=== PATIENT | female | born 1960 | race Caucasian/White ===

== ENCOUNTER → 2019-11-20 00:01 | Outpatient (BNVA) | payer MEDICAID, SELFPAY | PROVIDERS: Family Provider Nurse Practitioner Family; PCP Nurse Practitioner Family; Visit Provider Nurse Practitioner Family | DX: I10 Essential (primary) hypertension (principal); E55.9 Vitamin D deficiency, unspecified; R53.83 Other fatigue; Z79.899 Other long term (current) drug therapy; E78.2 Mixed hyperlipidemia; K21.9 Gastro-esophageal reflux disease without esophagitis; J45.40 Moderate persistent asthma, uncomplicated; J44.9 Chronic obstructive pulmonary disease, unspecified; J30.89 Other allergic rhinitis | CPT/HCPCS: 80053; 80061; 81001; 82306; 82607; 82746; 83036; 83735; 84443; 85025 ==

== ENCOUNTER → 2020-04-21 12:03 | Outpatient (BNVA) | payer MEDICAID, SELFPAY | PROVIDERS: Family Provider Nurse Practitioner Family; PCP Nurse Practitioner Family; Visit Provider Nurse Practitioner Family | DX: I10 Essential (primary) hypertension (principal); R30.0 Dysuria; M54.9 Dorsalgia, unspecified | CPT/HCPCS: 80053; 81001 ==

== ENCOUNTER 2020-09-11 16:11 | Emergency (ER) | payer MEDICAID, SELFPAY ==
[2020-09-11 16:24] VITALS: BP 144/98; PULSE 109; RESP 18; TEMP 36.6; O2SAT 94; BMI 64.2
--- NOTE | 2020-09-11 17:03 | XR_ITS ---
WS: [id number] Exam: XR chest 1V portable [id number] Date/Time of Exam: 09/11/2020 5:10 PM Reason For Exam: pain No priors. Plaque atelectasis in the lingula. No obvious consolidating infiltrates. Cardiomediastinal structures are unremarkable for technique. XR/XR chest 1V portable [id number] IMPRESSION: 1. Plaque atelectasis in the lingula. 2. No acute cardiopulmonary finding.
--- NOTE | 2020-09-11 17:19 | W.ED.GENADLT ---
HPI - General Adult General: Chief complaint: Headache Stated complaint: left knee and arm pain, pain in face Time Seen by Provider: 09/11/20 17:03 History of Present Illness: HPI narrative: Patient arrives here by POV with complaint about face pain on the right side neck pain and some pain left shoulder area was seen at [facility] diagnosed with nerve inflammation right side of her neck. MD complaint: Multiple complaints Onset (ago): day(s) Location: head, face, neck and upper extremity Radiation: non-radiation Severity: mild Severity scale (1-10): 2 Quality: aching Pain Consistency: intermittent Relieving factors: none Exacerbating factors: none Associated symptoms: Reports no associated symptoms; Deny chest pain, dyspnea, headache(s), nausea, rash or vomiting Treatments prior to arrival: none Review of Systems Narrative: Pain the right side of the face neck no swelling or inflammation she states is been gone for a few days does not take any [id number] medicines for relief Const: Denies: fever(s), chills or body aches Eyes: Denies: change in vision or blurry vision ENMT: Denies: throat pain or nasal congestion Card: Denies: chest pain or dyspnea on exertion Resp: Denies: dyspnea, productive cough or non-productive cough GI: Denies: abdominal pain, nausea or vomiting Musc: Reports: joint pain (Left shoulder); Denies: extremity pain Skin/Breast: Denies: rash Neuro: Denies: headache(s) Psych: Denies: anxiety or depression Bridger/Lymph: Denies: easy bruising PFSH ED PFSH: Medical History (Updated 09/11/20 @ 17:39 by SALOMON Peters) Abscess of right breast Back Pain Dysuria Environmental and seasonal allergies Patient has chronic seasonal and environmental allergies that are controlled with antihistamines GERD (gastroesophageal reflux disease) Patient has been controlled with Zantac in the past. Stopped Zantac due to recall by FDA Hypertension Patient's hypertension is controlled with antihpertensives. She does home BP monitoring. Moderate persistent asthma Patient has chronic asthma that is controlled with inhaler. Normal colonoscopy Colonoscopy 02/2019, normal repeat in 10 ears Vitamin D deficiency Patient needs updated Vitamin D level. She cannot tolerate Vitamin D supplement at this time. Surgical History S/P cholecystectomy S/P hernia repair S/P shoulder surgery Family History Brother Stroke Sister Stroke Father Stroke Other CAD (coronary artery disease) Diabetes Social History Smoking and tobacco status: former smoker Alcohol intake: never Household members: significant other Physical Exam Narrative: EXAM NARRATIVE: Very obese Const: COMMON NORMALS: no acute distress, average body habitus and patient oriented x3 HENMT: COMMON NORMALS: normocephalic HEAD & SCALP: normal to inspection and normocephalic FACE & SINUS: normal facial exam Eye: COMMON NORMALS: conjunctivae normal GENERAL EYE: appearance normal, both eyes and all related structures CONJUNCTIVA: Yes conjunctivae normal Neck/C-Spine: COMMON NORMALS: no JVD Chest: COMMONS NORMALS: normal inspection of the chest Resp: COMMON NORMALS: normal respiratory effort and clear to auscultation bilaterally AUSCULTATION: clear to auscultation bilaterally Cardio: COMMON NORMALS: no JVD, regular rate and regular rhythm RATE: regular rate RHYTHM: regular rhythm GI: COMMON NORMALS: Normal to inspection, nondistended, normoactive bowel sounds present Extremity: COMMON NORMALS: normal to inspection and full ROM NARRATIVE EXTREMITY EXAM: Some pain left shoulder with range of motion noted with palpation some pain in left central chest with palpation Neuro: COMMON NORMALS: patient oriented x3 and CN's II-XII intact bilaterally Skin: NARRATIVE SKIN EXAM: Patient is tender palpation right side neck is not there is no swelling redness erythema noted Course Vital Signs: Vital signs: Vital Signs Temperature 97.9 F 09/11/20 16:24 Pulse Rate 109 H 09/11/20 16:24 Respiratory Rate 18 09/11/20 16:24 Blood Pressure 144/98 09/11/20 16:24 Pulse Oximetry 94 09/11/20 16:24 Discharge Plan Discharge Patient Disposition: Home Clinical Impression: Chondrocostal joint sprain Qualifiers: Encounter type: initial encounter Qualified Code(s): S23.41XA - Sprain of ribs, initial encounter Condition: Stable Prescriptions: New Protonix 20 mg tablet,delayed release (DR/EC) 20 mg PO QAM 28 Days Qty: 28 RF: 0 Daypro 600 mg tablet 600 mg PO DAILY Qty: 20 RF: 0 No Action omega-3 fatty acids [Fish Oil Concentrate] 1,000 mg capsule 1,000 mg PO BID RF: 0 doxycycline monohydrate 100 mg capsule 100 mg PO BID 10 Days Qty: 20 RF: 0 omeprazole 20 mg capsule,delayed release(DR/EC) 20 mg PO ONCE MDD gerd 30 Days Qty: 30 RF: 2 albuterol sulfate [ProAir HFA] 90 mcg/actuation HFA aerosol inhaler 1 inh INHALATION Q4H PRN (Reason: shortness of breath or wheezing) 30 Days Qty: 8.5 RF: 2 amlodipine 10 mg tablet 10 mg PO ONCE 30 Days Qty: 30 RF: 2 diphenhydramine HCl [Benadryl Allergy] 25 mg tablet 25 mg PO TID PRN (Reason: allergy symptoms) Qty: 120 RF: 2 prednisone 20 mg tablet 10 mg PO DAILY Qty: 30 RF: 0 quailxjs-ekgdvpotj-SM 3.5-10,000-1 mg/mL-unit/mL-% drops,suspension 2 drop EAR-BOTH TID PRN (Reason: itchy ears) Qty: 10 RF: 0 Discharge Orders: Discharge Order (Routine); Ordered 09/11/20 Ordered By: Antonio Echeverria Referrals: REYNOLD Schaefer, CLOCK REPAIRER [Primary Care Provider] - Discharge Diet: Usual diet Discharge Activity: Increase activity as tolerated Patient Instructions: Costochondritis (ED) Activity Restrictions/Additional Instructions: Follow-up with medical provider as directed. Take medications as prescribed. Return to the ER or your medical provider if condition worsens. Please read and understand discharge instructions. If any questions ask please. Take your Protonix with your Daypro please Discharge Date/Time: 09/11/20 17:44 Coding Level of Care Code ED Apartment Maintenance Technician for Chg Fwd Exam Comprehensive
[2020-09-11] MEDS: diclofenac 75 mg DR Tablet PO (17:37)
[2020-09-11] MEDS: pantoprazole DR 40 mg Tablet PO (17:37)
== END 2020-09-11 17:44 | disposition home or self-care (01) ==
PROVIDERS: Emergency Provider Nurse Practitioner Family; PCP Nurse Practitioner Family
DX: S23.41XA Sprain of ribs, initial encounter (principal); X58.XXXA Exposure to other specified factors, initial encounter; I10 Essential (primary) hypertension; Z87.891 Personal history of nicotine dependence
CPT/HCPCS: 12345; 71045; 99281; 99283

== ENCOUNTER → 2021-03-03 15:11 | Outpatient (BNVA) | payer MEDICAID, SELFPAY | PROVIDERS: PCP Nurse Practitioner Family; Visit Provider Internal Medicine Pulmonary Disease | DX: J45.40 Moderate persistent asthma, uncomplicated (principal); J44.9 Chronic obstructive pulmonary disease, unspecified; R60.0 Localized edema; J30.89 Other allergic rhinitis; G47.33 Obstructive sleep apnea (adult) (pediatric) | CPT/HCPCS: 82785; 85025; 86003 ==

== ENCOUNTER 2021-03-31 11:27 | Outpatient (CLI) | payer MEDICAID, SELFPAY ==
--- NOTE | 2021-03-31 12:00 | USCV_ITS ---
Isaak Caren Age: 60 Gender: F : 1960 Exam Date: 03/31/2021 11:39 Ordering Phys: Henry Solomon MD Technologist: Deirdre Read [place] [facility] [place]ication: ENLARGED HEART WITH LOCALIZED EDEMA BP: / HR: 95 Rhythm: Sinus Technical Quality: Very technically difficult study MEASUREMENTS (Male / Female) Normal Values 2D ECHO LV Diastolic Diameter PLAX 4.2 cm 4.2 - 5.9 / 3.9 - 5.3 cm LV Systolic Diameter PLAX 2.0 cm LV Chamber Size 3.7 cm IVS Diastolic Thickness 1.3 cm 0.6 - 1.0 / 0.6 - 0.9 cm IVS Systolic Thickness 1.9 cm LVPW Diastolic Thickness 1.5 cm 0.6 - 1.0 / 0.6 - 0.9 cm LVPW Systolic Thickness 2.0 cm RV Chamber Size 3.9 cm LVOT Diameter 2.0 cm LV Ejection Fraction 2D Teich 83.1 % LV Ejection Fraction MOD 2C 44.7 % LV Ejection Fraction 2C AL 44.6 % LA Diameter 4.5 cm LA Width 3.3 cm LA Height 3.6 cm RA Width 3.1 cm RA Height 3.3 cm Aorta at Sinotubular Diameter 2.7 cm M-MODE LV Diastolic Diameter MM 4.3 cm 4.2 - 5.9 / 3.9 - 5.3 cm LV Systolic Diameter MM 2.9 cm LV Ejection Fraction MM Teich 61.4 % IVS Diastolic Thickness MM 1.2 cm 0.6 - 1.0 / 0.6 - 0.9 cm IVS Systolic Thickness MM 1.6 cm LVPW Diastolic Thickness MM 1.5 cm 0.6 - 1.0 / 0.6 - 0.9 cm LVPW Systolic Thickness MM 1.6 cm RV Diastolic Diameter MM 3.2 cm Aortic Annulus Diameter 2.4 cm LA Ao Ratio MM 1.9 MV E Point Septal Separation 0.4 cm DOPPLER AV Peak Velocity 227.0 cm/s LVOT Peak Velocity 107.0 cm/s AV Area Cont Eq vti 1.9 cm squared AV Area Cont Eq pk 1.6 cm squared MV Area PHT 8.1 cm squared Mitral E to A Ratio 1.4 MV E' Velocity 52.5 cm/s Mitral E to MV E' Ratio 10.4 Mitral E to LV E' Lateral Ratio 12.3 Mitral E to LV E' Septal Ratio 9.2 TR Peak Velocity 155.6 cm/s TR Peak Gradient 9.7 mmHg TR Mean Velocity 125.2 cm/s TR Mean Gradient 7.3 mmHg TR Velocity Time Integral 40.5 cm TV Peak E Velocity 60.0 cm/s Right Atrial Pressure 3.0 mmHg Pulmonary Artery Systolic Pressu 12.7 mmHg PV Peak Velocity 79.0 cm/s RV Acceleration Time 0.1 s RV Ejection Time 0.3 s RV AcT/ET 0.5 FINDINGS Left Ventricle Normal left ventricular size and systolic function, EF 55 %. Segmental wall motion analysis difficult. No gross wall motion normalities noted Right Ventricle Normal right ventricular size and systolic function. Right Atrium Possibly of normal size Left Atrium Mildly increased left atrial size. Mitral Valve No gross abnormalities noted Aortic Valve Thickened aortic valve. Tricuspid Valve No gross abnormalities noted Pulmonic Valve Pulmonic valve not well visualized. Pericardium Normal pericardium without effusion. Aorta Normal ascending aorta dimension. CONCLUSIONS Normal left ventricular size and systolic function, EF 55 %. Segmental wall motion analysis difficult. No gross wall motion normalities noted. Mildly increased left atrial size. Thickened aortic valve There is no pericardial effusion. Technically difficult study because of the poor ultrasonic window. Dr Dena Mariscal MD [facility] (Electronically Signed) Final Date: 01 Apr 2021 01:03 S
== END 2021-03-31 11:28 | disposition home or self-care (01) ==
PROVIDERS: PCP Nurse Practitioner Family; Visit Provider Internal Medicine Pulmonary Disease
DX: R60.0 Localized edema (principal); I51.7 Cardiomegaly; I35.8 Other nonrheumatic aortic valve disorders
CPT/HCPCS: 93306

== ENCOUNTER → 2021-04-07 14:02 | Outpatient (BNVA) | payer MEDICAID, SELFPAY | PROVIDERS: PCP Nurse Practitioner Family; Visit Provider Nurse Practitioner Family | DX: N39.0 Urinary tract infection, site not specified (principal) | CPT/HCPCS: 81000 ==

== ENCOUNTER 2021-04-10 20:32 | Emergency (ER) | payer MEDICAID, SELFPAY ==
[2021-04-10 20:36] VITALS: BP 184/90; PULSE 103; RESP 18; TEMP 36.4; O2SAT 93; BMI 61.2
--- NOTE | 2021-04-10 20:57 | ED_ITS ---
HPI - Female Genitourinary General: Chief complaint: Urogenital-Female Stated complaint: WANTS KIDNEYS AND BLADDER CHECKED Time Seen by Provider: 04/10/21 20:45 History of Present Illness: HPI Narrative: Patient said she is having frequent urination. Had a UA done ER stay was negative. Was told by her provider that she has a fallen bladder. She wants her urine rechecked. Think she has urinary tract infection. Says she has had UTIs since age 4. MD elicited complaint: UTI Severity: mild Urinary symptoms: Difficulty Urinating, Frequency and Urgency Associated symptoms: Reports no associated symptoms; Deny abdominal pain, headache(s) or nausea Review of Systems Const: Denies: fever(s), chills or body aches Eyes: Denies: change in vision or blurry vision ENMT: Denies: throat pain or nasal congestion Card: Denies: chest pain or dyspnea on exertion Resp: Denies: dyspnea, productive cough or non-productive cough GI: Denies: abdominal pain, nausea or vomiting : Reports: urinary frequency and oliguria Musc: Denies: extremity pain Skin/Breast: Denies: rash Neuro: Denies: headache(s) Psych: Denies: anxiety or depression Bridger/Lymph: Denies: easy bruising PFSH ED PFSH: Medical History (Updated 04/10/21 @ 21:10 by SALOMON Peters) Abscess of right breast Asthma, moderate persistent Back Pain Dysuria Environmental and seasonal allergies Patient has chronic seasonal and environmental allergies that are controlled with antihistamines GERD (gastroesophageal reflux disease) Patient has been controlled with Zantac in the past. Stopped Zantac due to recall by FDA Hypertension Patient's hypertension is controlled with antihpertensives. She does home BP monitoring. Medication management Mixed hyperlipidemia Moderate persistent asthma Patient has chronic asthma that is controlled with inhaler. Normal colonoscopy Colonoscopy 02/2019, normal repeat in 10 ears Stasis ulcer Tick bite Vitamin D deficiency Patient needs updated Vitamin D level. She cannot tolerate Vitamin D supplement at this time. Surgical History S/P cholecystectomy S/P hernia repair S/P shoulder surgery Family History Brother Stroke Sister Stroke Father Stroke Other CAD (coronary artery disease) Diabetes Social History Smoking and tobacco status: former smoker Quit status (tobacco): has quit using tobacco Year quit tobacco: 1997 [id number] Second hand smoke exposure: Yes Smoking risk assessment/counseling performed?: Yes Alcohol intake: never Lives independently: Yes Household members: significant other Marital status: Life Partner Current occupational status: disabled Pets and animals: Yes Pets & animal details: outside History of recent travel: No Current gender identity: Female Physical Exam Const: COMMON NORMALS: no acute distress Resp: COMMON NORMALS: normal respiratory effort Cardio: RATE: tachycardic Psych: COMMON NORMALS: mental status grossly normal Course Vital Signs: Vital signs: Vital Signs Temperature 97.6 F 04/10/21 20:36 Pulse Rate 88 04/10/21 21:17 Respiratory Rate 18 04/10/21 21:17 Blood Pressure 132/84 04/10/21 21:17 Pulse Oximetry 98 04/10/21 21:17 MDM - Female MDM Narrative: Medical decision making narrative: Patient does not appear acutely ill. Has symptoms consistent with a mild UTI are fallen bladder or both. Patient will follow up with REYNOLD drake in [place]. Instructed to take Prilosec can take Tagamet or Tums. Lab Data: Labs: Lab Results 04/10/21 Range/Units 20:50 Urine Color Yellow (Yellow) Urine Appearance Clear (CLEAR) Urine pH 5 (5-7) Ur Specific Gravit y 1.020 (1.005-1.030) Urine Protein Neg (Negative) Urine Glucose (UA) Norm (Normal) Urine Ketones 1+ H (Negative) Urine Blood Trace H (Negative) Urine Nitrate Negative (Negative) Urine Bilirubin 1+ H (Negative) Urine Urobilinogen 4 H (Negative) mg/dL Ur Leukocyte Laurel ase Negative (Negative) Urine RBC 0-4 H (0-2) /hpf Urine WBC 0-4 H (0-5) /hpf Ur Squamous Epith Cells 5-10 H (0-5) /hpf Amorphous Sediment Not Reportable Urine Bacteria 1+ H (NONE) /hpf Urine Mucus 2+ /hpf Discharge Plan Discharge Patient Disposition: Home Clinical Impression: Increased urinary frequency Condition: Stable Prescriptions: New Macrobid 100 mg capsule 100 mg PO BID 5 Days Qty: 10 RF: 0 No Action omega-3 fatty acids [Fish Oil Concentrate] 1,000 mg capsule 1,000 mg PO BID@0900,2100 RF: 0 albuterol sulfate [ProAir HFA] 90 mcg/actuation HFA aerosol inhaler 1 inh INHALATION Q4H PRN (Reason: shortness of breath or wheezing) 30 Days Qty: 8.5 RF: 5 diphenhydramine HCl [Benadryl Allergy] 25 mg tablet 25 mg PO TID PRN (Reason: allergy symptoms) Qty: 120 RF: 2 albuterol sulfate 2.5 mg /3 mL (0.083 %) solution for nebulization 2.5 mg inhalation Q4H PRN (Reason: shortness of breath or wheezing) Qty: 180 RF: 1 prednisone 10 mg tablet 10 mg PO DAILY PRN (Reason: UNKNOWN) RF: 0 hydrocortisone acetate 0.5 % Cream 1 applic TOPICAL BID PRN (Reason: UKNOWN) RF: 0 doxycycline monohydrate 100 mg tablet 100 mg PO BID@0900,2100 RF: 0 amlodipine 10 mg tablet 10 mg PO DAILY@0900 RF: 0 Advair Diskus 500-50 mcg/dose blister with device 1 inh inhalation BID@0900,2100 RF: 0 Singulair 10 mg tablet 10 mg PO DAILY@0900 RF: 0 Discharge Orders: Discharge ED (Routine); Ordered 04/10/21 Ordered By: Antonio Echeverria Referrals: REYNOLD Drake FNP [Primary Care Provider] - Discharge Activity: Resume usual activity Patient Instructions: Dysuria (ED) Activity Restrictions/Additional Instructions: Follow-up with medical provider as directed. Take medications as prescribed. Return to the ER or your medical provider if condition worsens. Please read and understand discharge instructions. If any questions ask please. Ask SALOMON Boyd if she would be willing to get a referral to [facility] our urologist for evaluati on Coding Level of Care Code ED Fire Lieutenant for Chg Fwd Exam Expanded Problem Focused
[2021-04-10 21:05] LABS: Glucose Urine UA Norm (Normal); Ketones Urine 1+ (Negative); Protein Urine Neg (Negative); Urine Appearance Clear (CLEAR); Urine Color Yellow (Yellow); pH Urine 5 (5-7)
[2021-04-10 21:06] LABS: Add Urine Microscopic? YES; Bilirubin Urine 1+ (Negative); Blood Urine Trace (Negative); Leukocyte Esterase Urine Negative (Negative); Nitrate Urine Negative (Negative); RBC Urine 0-4 /hpf (0-2); Urobilinogen Urine 4 mg/dL (Negative); WBC Urine 0-4 /hpf (0-5)
[2021-04-10 21:07] LABS: Bacteria Urine 1+ /hpf; Mucus Urine 2+ /hpf
[2021-04-10] MEDS: nitrofurantoin SR (BID) 100 mg Capsule PO (21:15)
[2021-04-10 21:17] VITALS: BP 132/84; PULSE 88; RESP 18; O2SAT 98
== END 2021-04-10 21:27 | disposition home or self-care (01) ==
PROVIDERS: Emergency Provider Nurse Practitioner Family; PCP Nurse Practitioner Family
DX: R35.0 Frequency of micturition (principal); I10 Essential (primary) hypertension; E78.2 Mixed hyperlipidemia; Z87.891 Personal history of nicotine dependence
CPT/HCPCS: 81001; 99283

== ENCOUNTER → 2021-04-16 10:46 | Outpatient (BNVA) | payer MEDICAID, SELFPAY | PROVIDERS: PCP Nurse Practitioner Family; Visit Provider Internal Medicine Pulmonary Disease | DX: J44.9 Chronic obstructive pulmonary disease, unspecified (principal); Z20.822 Contact with and (suspected) exposure to COVID-19 | CPT/HCPCS: 87635 ==

== ENCOUNTER 2021-04-20 12:44 | Outpatient (CLI) | payer MEDICAID, SELFPAY ==
--- NOTE | 2021-04-20 13:29 | PFTS_ITS ---
Date of Study:04/20/21 Date of Dictation: 04/24/2021 MECHANICS: Postbronchodilator forced vital capacity (FVC) is reduced. Postbronchodilator forced expiratory volume in one second (FEV1) is moderately reduced 1.33 L - 58% FEV1/FVC is normal. There is no significant bronchodilator response. FLOW VOLUME LOOP: Normal . LUNG VOLUMES: Total lung capacity (TLC) is mildly reduced 78%. Residual volume (RV) is normal. DIFFUSING CAPACITY FOR CARBON MONOXIDE: Normal. . INTERPRETATION: The spirometry consistent with moderate restriction. There is no significant bronchodilator response. Lung volumes show mild restriction. Normal gas transfer. Correlate clinically. MTDD
== END 2021-04-20 12:45 | disposition home or self-care (01) ==
LOC: RT 12:46
PROVIDERS: PCP Nurse Practitioner Family; Visit Provider Internal Medicine Pulmonary Disease
DX: J44.9 Chronic obstructive pulmonary disease, unspecified (principal)
CPT/HCPCS: 94060; 94726; 94729; J7611

== ENCOUNTER → 2021-04-24 14:48 | Outpatient (BNVA) | payer MEDICAID, SELFPAY | PROVIDERS: PCP Nurse Practitioner Family; Visit Provider Obstetrics & Gynecology | DX: N39.0 Urinary tract infection, site not specified (principal); Z34.80 Encounter for supervision of other normal pregnancy, unspecified trimester; Z12.4 Encounter for screening for malignant neoplasm of cervix; N93.9 Abnormal uterine and vaginal bleeding, unspecified; N95.0 Postmenopausal bleeding | CPT/HCPCS: 81000; 87086; 88175; 88305 ==

== ENCOUNTER → 2021-04-27 15:04 | Outpatient (BNVA) | payer MEDICAID, SELFPAY | PROVIDERS: PCP Nurse Practitioner Family; Visit Provider Obstetrics & Gynecology | DX: N95.0 Postmenopausal bleeding (principal); Z87.440 Personal history of urinary (tract) infections; R10.2 Pelvic and perineal pain | CPT/HCPCS: 76830 ==

== ENCOUNTER → 2021-06-04 14:54 | Outpatient (BNVA) | payer MEDICAID, SELFPAY | PROVIDERS: PCP Nurse Practitioner Family; Visit Provider Obstetrics & Gynecology | DX: N95.0 Postmenopausal bleeding (principal); R93.89 Abnormal findings on diagnostic imaging of other specified body structures; Z20.822 Contact with and (suspected) exposure to COVID-19 | CPT/HCPCS: 87635 ==

== ENCOUNTER 2021-06-10 10:25 | Emergency (ER) | payer MEDICAID, SELFPAY ==
[2021-06-10 11:25] VITALS: BP 182/103; PULSE 85; RESP 18; TEMP 37.2; O2SAT 94; BMI 60.2
[2021-06-10 13:19] VITALS: BP 187/72; PULSE 80; TEMP 37.2; O2SAT 95
--- NOTE | 2021-06-10 13:37 | W.ED.SKABFB ---
HPI - Skin/Abscess/Foreign Bdy General: Chief complaint: Skin/Abscess/Foreign Body Stated complaint: L leg Pain Time Seen by Provider: 06/10/21 13:05 PFSH ED PFSH: Medical History (Updated 06/09/21 @ 14:49 by SALOMON Boyd) Abscess of right breast Acute bacterial sinusitis Asthma, moderate persistent Back Pain Cellulitis Dysuria Environmental and seasonal allergies Patient has chronic seasonal and environmental allergies that are controlled with antihistamines GERD (gastroesophageal reflux disease) Patient has been controlled with Zantac in the past. Stopped Zantac due to recall by FDA Hypertension Patient's hypertension is controlled with antihpertensives. She does home BP monitoring. Medication management Mixed hyperlipidemia Moderate persistent asthma Patient has chronic asthma that is controlled with inhaler. Normal colonoscopy Colonoscopy 02/2019, normal repeat in 10 ears Stasis ulcer Tick bite Vitamin D deficiency Patient needs updated Vitamin D level. She cannot tolerate Vitamin D supplement at this time. Surgical History S/P cholecystectomy S/P hernia repair S/P shoulder surgery Family History Brother Stroke Hypertension Sister Stroke Clotting disorder x2 Thyroid disease Father Stroke Hyperlipidemia Hypertension Grandfather Clotting disorder Maternal Diabetes Maternal Cancer Maternal--stomach Mother Diabetes Hypertension Thyroid disease Family/Other Breast cancer Maternal aunt Denies family history of CAD (coronary artery disease) Bleeding disorder Social History Quit status (tobacco): has quit using tobacco Year quit tobacco: 1997 Former quit date comment: Hx of 2-4PPD x 20 Years Smoking risk assessment/counseling performed?: No Alcohol intake: former Counseling given: No Counseling given: No Lives independently: Yes Household members: significant other Marital status: Legally Current occupational status: disabled History of recent travel: No Current gender identity: Female Course Vital Signs: Vital signs: Vital Signs Temperature 98.9 F 06/10/21 13:19 Pulse Rate 80 06/10/21 13:19 Respiratory Rate 18 06/10/21 11:25 Blood Pressure 187/72 06/10/21 13:19 Pulse Oximetry 95 06/10/21 13:19 Discharge Plan Discharge Prescriptions: No Action omega-3 fatty acids [Fish Oil Concentrate] 1,000 mg capsule 1,000 mg PO BID@0900,2100 RF: 0 ofloxacin 0.3 % drops 4 drp otic (ear) BID 14 Days Qty: 10 RF: 1 albuterol sulfate [ProAir HFA] 90 mcg/actuation HFA aerosol inhaler 1 inh INHALATION Q4H PRN (Reason: shortness of breath or wheezing) 30 Days Qty: 8.5 RF: 5 Pepcid Complete 10-800-165 mg tablet,chewable 1 tab PO BID RF: 0 doxycycline monohydrate 100 mg tablet 100 mg PO BID Qty: 20 RF: 0 mupirocin 2 % ointment 1 applic topical BID PRN (Reason: cellulitis) 30 Days Qty: 22 RF: 0 diphenhydramine HCl [Benadryl Allergy] 25 mg tablet 25 mg PO TID PRN (Reason: allergy symptoms) Qty: 120 RF: 2 albuterol sulfate 2.5 mg /3 mL (0.083 %) solution for nebulization 2.5 mg inhalation Q4H PRN (Reason: shortness of breath or wheezing) Qty: 180 RF: 1 prednisone 10 mg tablet 10 mg PO DAILY PRN (Reason: UNKNOWN) RF: 0 hydrocortisone acetate 0.5 % Cream 1 applic TOPICAL BID PRN (Reason: UKNOWN) RF: 0 amlodipine 10 mg tablet 10 mg PO DAILY@0900 RF: 0 fluticasone propion-salmeterol [Advair Diskus] 500-50 mcg/dose blister with device 1 inh inhalation BID@0900,2100 RF: 0 montelukast [Singulair] 10 mg tablet 10 mg PO DAILY@0900 RF: 0 Coding Level of Care Code ED Advanced Manufacturing Associate for [employer]
[2021-06-10 14:00] LABS: Basophils # 0.1 10^3/uL (0.0-0.1); Basophils % 2.5 %; Eosinophils # 0.1 10^3/uL (0.0-0.8); Eosinophils % 2.3 %; Hematocrit 49.3 % (37.0-47.0); Hemoglobin 15.5 g/dL (11.5-15.3); Lymphocytes # 1.4 10^3/uL (0.8-4.8); Lymphocytes % 27.5 %; Mean Corpuscular HGB Conc 31.4 g/dL (30.0-36.0); Mean Corpuscular Hemoglobin 28.7 pg (28.0-34.0); Mean Corpuscular Volume 91.1 fL (81-99); Mean Platelet Volume 9.4 fL (7.4-10.4); Monocytes % 19.9 %; Neutrophils # 2.36 10^3/uL (1.8-7.7); Neutrophils % 46.2 %; Nucleated Red Blood Cells % 0 %; Platelet Count 325 10^3/cmm (130-400); Red Blood Count 5.41 10^6/uL (4.1-5.3); Red Cell Distribution Width 14.2 % (12.1-15.1); White Blood Count 5.1 10^3/uL (4.0-10.0)
[2021-06-10 14:33] LABS: Alanine Aminotransferase 40 U/L (0-33); Alkaline Phosphatase 60 IU/L (35-105); Anion Gap 12.1 (5-19); Aspartate Amino Transferase 42 U/L (0-32); Blood Urea Nitrogen 5 mg/dL (6-20); C Reactive Protein 9.5 mg/L (0.0-4.9); Calcium 8.5 mg/dL (8.5-10.5); Carbon Dioxide 29 mmol/L (22-29); Chloride 98 mmol/L (98-107); Globulin 3.4 g/dL (1.3-4.6); Glomerular Filtration Rate 163.9 mL/min (90-130); Glucose 100 mg/dL (65-115); Osmolality Calculated 279 mOsm/kg (285-295); Potassium 3.1 mmol/L (3.5-5.1); Sodium 136 mmol/L (136-145); Total Bilirubin 0.4 mg/dL (0.15-1.2); Total Protein 7.4 g/dL (6.6-8.7)
[2021-06-10] MEDS: potassium chloride ER 20 mEq Tablet 40 MEQ PO (14:57)
--- NOTE | 2021-06-10 14:57 | W.ED.EXTPRO ---
HPI - Extremity Problem General: Chief complaint: Skin/Abscess/Foreign Body Stated complaint: L leg Pain Time Seen by Provider: 06/10/21 13:05 Source: patient Mode of arrival: ambulatory Limitations: no limitations History of Present Illness: HPI Narrative: Patient is a 52-year-old female who presents to ED today with a complaint of a rash to her left lower leg that she has noticed over the past 3 to 4 days. Patient tells me she is having pain. She has not noticed any increased swelling apart from her baseline. Redness is localized to the rash. She is not having chest pain or shortness of breath. [facility] and placed on doxycycline and mupirocin. Patient states she has had 1 dose of the doxycycline so far. MD Complaint: extremity pain Onset (ago): day(s) Pain Consistency: constant Location: left and lower extremity Radiation: none Relieving factors: nothing Exacerbating factors: nothing Associated symptoms: Reports no associated symptoms; Deny chest pain or fever(s) Review of Systems Const: Denies: fever(s), chills, body aches, fatigue or malaise Card: Denies: chest pain Resp: Denies: dyspnea Musc: Reports: extremity pain; Denies: extremity swelling, joint pain or joint swelling Skin/Breast: Reports: erythema Neuro: Denies: headache(s), numbness in extremities, weakness in extremities or sensory changes PFS ED PFSH: Medical History (Updated 06/10/21 @ 14:53 by MARIANELA Rinaldi) Abscess of right breast Acute bacterial sinusitis Asthma, moderate persistent Back Pain Cellulitis Dysuria Environmental and seasonal allergies Patient has chronic seasonal and environmental allergies that are controlled with antihistamines GERD (gastroesophageal reflux disease) Patient has been controlled with Zantac in the past. Stopped Zantac due to recall by FDA Hypertension Patient's hypertension is controlled with antihpertensives. She does home BP monitoring. Medication management Mixed hyperlipidemia Moderate persistent asthma Patient has chronic asthma that is controlled with inhaler. Normal colonoscopy Colonoscopy 02/2019, normal repeat in 10 ears Stasis ulcer Tick bite Vitamin D deficiency Patient needs updated Vitamin D level. She cannot tolerate Vitamin D supplement at this time. Surgical History S/P cholecystectomy S/P hernia repair S/P shoulder surgery Family History Brother Stroke Hypertension Sister Stroke Clotting disorder x2 Thyroid disease Father Stroke Hyperlipidemia Hypertension Grandfather Clotting disorder Maternal Diabetes Maternal Cancer Maternal--stomach Mother Diabetes Hypertension Thyroid disease Family/Other Breast cancer Maternal aunt Denies family history of CAD (coronary artery disease) Bleeding disorder Social History Quit status (tobacco): has quit using tobacco Year quit tobacco: 1997 Former quit date comment: Hx of 2-4PPD x 20 Years Smoking risk assessment/counseling performed?: No Alcohol intake: former Counseling given: No Counseling given: No Lives independently: Yes Household members: significant other Marital status: Legally Current occupational status: disabled History of recent travel: No Current gender identity: Female Physical Exam Const: COMMON NORMALS: no acute distress, patient oriented x3, no limitations and alert NUTRITIONAL APPEARANCE: obese morbidly obese ORIENTATION/CONSCIOUSNESS: Yes awake, Yes oriented to person, Yes oriented to place and Yes oriented to time Resp: COMMON NORMALS: normal respiratory effort Cardio: COMMON NORMALS: regular rate and regular rhythm RATE: regular rate RHYTHM: regular rhythm Extremity: COMMON NORMALS: full ROM, capillary refill normal and no calf tenderness GENERAL: Yes normal exam except as noted OTHER: bilateral LE edema Neuro: COMMON NORMALS: patient oriented x3 SENSORIUM/ORIENTATION: Yes alert, Yes oriented to person, Yes oriented to place and Yes oriented to time Skin: NARRATIVE SKIN EXAM: patient has cellulitic appearing rash to L lower anterior leg and an area posteriorly as well that appears to have 2-3 ruptured bulla; no lymphangitic streaking Course Vital Signs: Vital signs: Vital Signs Temperature 98.9 F 06/10/21 13:19 Pulse Rate 80 06/10/21 13:19 Respiratory Rate 18 06/10/21 11:25 Blood Pressure 187/72 06/10/21 13:19 Pulse Oximetry 95 06/10/21 13:19 MDM - Extremity (Nontraumatic) MDM Narrative: Medical decision making narrative: Patient is non-ill nontoxic appearing. Her vital signs are stable. She has a normal white count. CRP is mildly elevated at 9.5. Incidental finding of hypokalemia at 3.1. She was given an oral dose of potassium prior to discharge. Patient recommended to continue on her doxycycline. Return to ED precautions given if redness and pain continues to spread despite antibiotic therapy for 48 hours. Lab Data: Labs: Lab Results 06/10/21 06/10/21 Range/Units 13:44 13:44 WBC 5.1 (4.0-10.0) 10^3/ uL RBC 5.41 H (4.1-5.3) 10^6/u L Hgb 15.5 H (11.5-15.3) g/dL Hct 49.3 H (37.0-47.0) % MCV 91.1 (81-99) fL MCH 28.7 (28.0-34.0) pg MCHC 31.4 (30.0-36.0) g/dL RDW 14.2 (12.1-15.1) % Plt Count 325 (130-400) 10^3/c mm MPV 9.4 (7.4-10.4) fL Neut % (Auto) 46.2 % Lymph % (Auto) 27.5 % [place] % (Auto) 19.9 % Eos % (Auto) 2.3 % Baso % (Auto) 2.5 % Neut # (Auto) 2.36 (1.8-7.7) 10^3/u L Lymph # (Auto) 1.4 (0.8-4.8) 10^3/u L [place] # (Auto) 1.0 H (0.2-0.9) 10^3/u L Eos # (Auto) 0.1 (0.0-0.8) 10^3/u L Baso # (Auto) 0.1 (0.0-0.1) 10^3/u L Nucleated RBC % (a uto) 0 % Nucleated RBCs # 0.0 /100WBC Sodium 136 (136-145) mmol/L Potassium 3.1 L (3.5-5.1) mmol/L Chloride 98 (98-107) mmol/L Carbon Dioxide 29 (22-29) mmol/L Anion Gap 12.1 (5-19) BUN 5 L (6-20) mg/dL Creatinine 0.4 L (0.5-0.9) mg/dL GFR Calculation 163.9 H (90-130) mL/min Glucose 100 (65-115) mg/dL Calculated Osmolal ity 279 L (285-295) mOsm/k g Calcium 8.5 (8.5-10.5) mg/dL Total Bilirubin 0.4 (0.15-1.2) mg/dL AST 42 H (0-32) U/L ALT 40 H (0-33) U/L Alkaline Phosphata se 60 (35-105) IU/L C-Reactive Protein 9.5 H (0.0-4.9) mg/L Total Protein 7.4 (6.6-8.7) g/dL Albumin 4.0 (3.5-5.2) g/dL Globulin 3.4 (1.3-4.6) g/dL Discharge Plan Discharge Patient Disposition: Home Clinical Impression: Cellulitis of left leg without foot, Acute hypokalemia Condition: Stable Prescriptions: No Action omega-3 fatty acids [Fish Oil Concentrate] 1,000 mg capsule 1,000 mg PO BID@0900,2100 RF: 0 ofloxacin 0.3 % drops 4 drp otic (ear) BID 14 Days Qty: 10 RF: 1 albuterol sulfate [ProAir HFA] 90 mcg/actuation HFA aerosol inhaler 1 inh INHALATION Q4H PRN (Reason: shortness of breath or wheezing) 30 Days Qty: 8.5 RF: 5 Pepcid Complete 10-800-165 mg tablet,chewable 1 tab PO BID RF: 0 doxycycline monohydrate 100 mg tablet 100 mg PO BID Qty: 20 RF: 0 mupirocin 2 % ointment 1 applic topical BID PRN (Reason: cellulitis) 30 Days Qty: 22 RF: 0 diphenhydramine HCl [Benadryl Allergy] 25 mg tablet 25 mg PO TID PRN (Reason: allergy symptoms) Qty: 120 RF: 2 albuterol sulfate 2.5 mg /3 mL (0.083 %) solution for nebulization 2.5 mg inhalation Q4H PRN (Reason: shortness of breath or wheezing) Qty: 180 RF: 1 prednisone 10 mg tablet 10 mg PO DAILY PRN (Reason: UNKNOWN) RF: 0 hydrocortisone acetate 0.5 % Cream 1 applic TOPICAL BID PRN (Reason: UKNOWN) RF: 0 amlodipine 10 mg tablet 10 mg PO DAILY@0900 RF: 0 fluticasone propion-salmeterol [Advair Diskus] 500-50 mcg/dose blister with device 1 inh inhalation BID@0900,2100 RF: 0 montelukast [Singulair] 10 mg tablet 10 mg PO DAILY@0900 RF: 0 Discharge Orders: Discharge ED (Routine); Ordered 06/10/21 Ordered By: Leida Puentes Referrals: REYNOLD Schaefer, COURT WORKER [Primary Care Provider] - Patient Instructions: Cellulitis (ED) Activity Restrictions/Additional Instructions: Continue taking the doxycycline as prescribed. You need to return to the emergency department in 2 to 3 days if redness and pain continues to worsen despite antibiotics. Your potassium was mildly low today. You were given a dose prior to discharge. Please contact primary care to have this repeated in 3 to 4 days. Coding Level of Care Code ED [place] [facility] for Jose Shin
== END 2021-06-10 15:01 | disposition home or self-care (01) ==
PROVIDERS: Emergency Provider Physician Assistant; PCP Nurse Practitioner Family
DX: L03.116 Cellulitis of left lower limb (principal); E87.6 Hypokalemia; J45.40 Moderate persistent asthma, uncomplicated; I10 Essential (primary) hypertension; E78.2 Mixed hyperlipidemia; Z87.891 Personal history of nicotine dependence
CPT/HCPCS: 80053; 85025; 86140; 87040; 99283

== ENCOUNTER 2021-06-15 15:08 | Emergency (ER) | payer MEDICAID, SELFPAY ==
--- NOTE | 2021-06-15 15:16 | XRR_ITS ---
PROCEDURE INFORMATION: Exam: XR Chest Exam date and time: 06/15/2021 3:16 PM Age: 60 years old Clinical indication: Shortness of breath; Additional info: SOB. HX of copd TECHNIQUE: Imaging protocol: XR of the chest. Views: 1 view. COMPARISON: CR XR chest 1V portable [id number] 09/11/2020 5:12 PM FINDINGS: There is cardiomegaly. There is opacity within the left lung base similar to the old exam. The right lung is clear. There is no pneumothorax. The pulmonary vascularity is normal. XR/XR chest 1V portable [id number] IMPRESSION: Stable appearance of the chest.
[2021-06-15 15:37] VITALS: BP 158/88; PULSE 98; RESP 18; TEMP 37.2; O2SAT 94; BMI 60.0
[2021-06-15 22:08] VITALS: BP 186/75; PULSE 104; RESP 18; O2SAT 89
[2021-06-15 22:09] VITALS: O2SAT 88
--- NOTE | 2021-06-15 22:14 | ED_ITS ---
HPI - COVID General: Chief Complaint: COVID symptoms Stated Complaint: SOB, Covid + Time Seen by Provider: 06/15/21 22:14 Triage information: Has fever, cough or shortness of breath . Exposure to COVID + person last 14 days History of Present Illness: HPI Narrative: 60-year-old female comes in today for concerns of desaturation of oxygen starting today. Patient has a history of COPD, obesity, GERD, hypertension, asthma, and allergies. Patient reports sometimes of her allergies and asthma her saturations will drop. Patient's male significant other has been positive for Covid for 1 week. COVID Results: SARS-CoV-2 Antigen (Rapid) Positive (Negative) H 06/15/21 22:45 06/15/21 Nasal/Oral Coronavirus 2019 PCR Not detected 06/04/21 14:54 06/04/21 Review of Systems General: Reports: 10 or more systems reviewed and unremarkable except in HPI and below Resp: Reports: other (low oxygen) [facility]: Medical History (Updated 06/16/21 @ 00:00 by SALOMON Salomon) Abscess of right breast Acute bacterial sinusitis Asthma, moderate persistent Back Pain Cellulitis Dysuria Environmental and seasonal allergies Patient has chronic seasonal and environmental allergies that are controlled with antihistamines GERD (gastroesophageal reflux disease) Patient has been controlled with Zantac in the past. Stopped Zantac due to recall by FDA Hypertension Patient's hypertension is controlled with antihpertensives. She does home BP monitoring. Medication management Mixed hyperlipidemia Moderate persistent asthma Patient has chronic asthma that is controlled with inhaler. Normal colonoscopy Colonoscopy 02/2019, normal repeat in 10 ears Stasis ulcer Tick bite Vitamin D deficiency Patient needs updated Vitamin D level. She cannot tolerate Vitamin D supplement at this time. Surgical History S/P cholecystectomy S/P hernia repair S/P shoulder surgery Family History Brother Stroke Hypertension Sister Stroke Clotting disorder x2 Thyroid disease Father Stroke Hyperlipidemia Hypertension Grandfather Clotting disorder Maternal Diabetes Maternal Cancer Maternal--stomach Mother Diabetes Hypertension Thyroid disease Family/Other Breast cancer Maternal aunt Denies family history of CAD (coronary artery disease) Bleeding disorder Social History Quit status (tobacco): has quit using tobacco Year quit tobacco: 1997 Former quit date comment: Hx of 2-4PPD x 20 Years Smoking risk assessment/counseling performed?: No Alcohol intake: former Counseling given: No Counseling given: No Lives independently: Yes Household members: significant other Marital status: Legally Current occupational status: disabled History of recent travel: No Current gender identity: Female Physical Exam Const: COMMON NORMALS: no acute distress and patient oriented x3 GENERAL APPEARANCE: cooperative HENMT: COMMON NORMALS: normocephalic and Normal external nose present HEAD & SCALP: normal to inspection and normocephalic NOSE: Normal external nose present MOUTH: Normal oral and palatal mucosa present Eye: GENERAL EYE: appearance normal, both eyes and all related structures Neck/C-Spine: COMMON NORMALS: full ROM Chest: COMMONS NORMALS: normal inspection of the chest Resp: COMMON NORMALS: normal respiratory effort EFFORT & INSPECTION: Yes able to speak in complete sentences AUSCULTATION: diminished lung sounds Cardio: COMMON NORMALS: regular rate and regular rhythm RATE: regular rate RHYTHM: regular rhythm GI: COMMON NORMALS: non-tender Back/Pelvis: COMMON NORMALS: thoracic and lumbar spine normal to inspection Extremity: COMMON NORMALS: normal to inspection Neuro: COMMON NORMALS: patient oriented x3 and moves all extremities Psych: COMMON NORMALS: mental status grossly normal and cooperative Skin: COMMON NORMALS: no rashes or lesions noted GENERAL SKIN EXAM: no rashes or lesions noted Course Vital Signs: Vital signs: Vital Signs Temperature 99.0 F 06/15/21 15:37 Pulse Rate 89 06/15/21 23:28 Respiratory Rate 18 06/15/21 22:08 Blood Pressure 134/75 06/15/21 23:28 Pulse Oximetry 95 06/15/21 23:28 MDM - COVID MDM Narrative: Medical decision making narrative: 60-year-old female comes in today for concerns of desaturation at home. Patient reported some episodes of her oxygen dropping into the 80s at home. Patient is a chronic COPD patient. Patient is also morbidly obese. Patient lives of her male significant other who tested positive for COVID-19 last week. On exam patient is alert and oriented. Patient appears in no distress. Oxygen saturations are 9 5% at rest on room air. Differential diagnosis includes but not limited to pneumonia, COVID-19, CHF, ACS. Chest x-ray noted no pneumonia pneumonia. COVID-19 test was positive. Patient at this time is very stable. I reviewed with patient the recommendation for her to have a monoclonal antibody infusion. After answering all questions patient was agreeable to plan. Patient will also be treated with oxygen, her normal respiratory medications, and dexamethasone. Patient reports understanding of care plan and need for follow-up or return to the ER. Lab Data: Labs: Lab Results 06/15/21 06/15/21 Range/Units 22:45 23:26 WBC 4.9 (4.0-10.0) 10^3/ uL RBC 5.78 H (4.1-5.3) 10^6/u L Hgb 16.5 H (11.5-15.3) g/dL Hct 51.7 H (37.0-47.0) % MCV 89.4 (81-99) fL MCH 28.5 (28.0-34.0) pg MCHC 31.9 (30.0-36.0) g/dL RDW 14.0 (12.1-15.1) % Plt Count 250 (130-400) 10^3/c mm MPV 9.7 (7.4-10.4) fL Neut % (Auto) 49.3 % Lymph % (Auto) 35.3 % [place] % (Auto) 12.2 % Eos % (Auto) 1.4 % Baso % (Auto) 1.0 % Neut # (Auto) 2.43 (1.8-7.7) 10^3/u L Lymph # (Auto) 1.7 (0.8-4.8) 10^3/u L [place] # (Auto) 0.6 (0.2-0.9) 10^3/u L Eos # (Auto) 0.1 (0.0-0.8) 10^3/u L Baso # (Auto) 0.1 (0.0-0.1) 10^3/u L Nucleated RBC % (a uto) 0 % Nucleated RBCs # 0.0 /100WBC SARS-CoV-2 Ag (Rap id) Positive H (Negative) COVID Results: SARS-CoV-2 Antigen (Rapid) Positive (Negative) H 06/15/21 22:45 08/02/21 Nasal/Oral Coronavirus 2019 PCR Not detected 06/04/21 14:54 06/04/21 Discharge Plan Discharge Patient Disposition: Home Clinical Impression: COVID-19 Condition: Stable Prescriptions: New dexamethasone 6 mg tablet 6 mg PO BID Qty: 14 RF: 0 No Action omega-3 fatty acids [Fish Oil Concentrate] 1,000 mg capsule 1,000 mg PO BID@0900,2100 RF: 0 ofloxacin 0.3 % drops 4 drp otic (ear) BID 14 Days Qty: 10 RF: 1 albuterol sulfate [ProAir HFA] 90 mcg/actuation HFA aerosol inhaler 1 inh INHALATION Q4H PRN (Reason: shortness of breath or wheezing) 30 Days Qty: 8.5 RF: 5 Pepcid Complete 10-800-165 mg tablet,chewable 1 tab PO BID RF: 0 doxycycline monohydrate 100 mg tablet 100 mg PO BID Qty: 20 RF: 0 mupirocin 2 % ointment 1 applic topical BID PRN (Reason: cellulitis) 30 Days Qty: 22 RF: 0 diphenhydramine HCl [Benadryl Allergy] 25 mg tablet 25 mg PO TID PRN (Reason: allergy symptoms) Qty: 120 RF: 2 albuterol sulfate 2.5 mg /3 mL (0.083 %) solution for nebulization 2.5 mg inhalation Q4H PRN (Reason: shortness of breath or wheezing) Qty: 180 RF: 1 prednisone 10 mg tablet 10 mg PO DAILY PRN (Reason: UNKNOWN) RF: 0 hydrocortisone acetate 0.5 % Cream 1 applic TOPICAL BID PRN (Reason: UK[place]OWN) RF: 0 amlodipine 10 mg tablet 10 mg PO DAILY@0900 RF: 0 fluticasone propion-salmeterol [Advair Diskus] 500-50 mcg/dose blister with device 1 inh inhalation BID@0900,2100 RF: 0 montelukast [Singulair] 10 mg tablet 10 mg PO DAILY@0900 RF: 0 Discharge Orders: Discharge ED (Routine); Ordered 06/15/21 Ordered By: Misael Tijerina Referrals: REYNOLD Schaefer, RETURN TO SERVICE INSPECTOR [Primary Care Provider] - Discharge Diet: Usual diet Discharge Activity: Resume usual activity Patient Instructions: Viral Syndrome (ED), Opioid Safety Activity Restrictions/Additional Instructions: Continue with routine care. Use albuterol and other respiratory medications as directed. Instead of prednisone use the dexamethasone 6 mg twice a day for the next 7 days. Use acetaminophen and ibuprofen for aches pains and fever. Make sure you drink plenty of water at least 2 L a day. Follow-up with primary care for further instructions. Return to the emergency department for worsening symptoms or new concerns. Coding Level of Care Code ED Drum Sealer for Jose Shin Exam Comprehensive
[2021-06-15 22:15] VITALS: O2SAT 79
--- NOTE | 2021-06-15 22:15 | PC.NURSE ---
patient noted to drop to have oxygen sat drop to 79% on Room air with exertion
--- NOTE | 2021-06-15 22:16 | ECG_ITS ---
[facility] Test Date: 2021-06-15 Pat Name: Caren Mulligan Department: Room: Gender: Female Airplane Inspector: : 1960 Requested By: Misael Dickinson Order Number: [id number] Reading MD: ONELIA GUZMAN Measurements Intervals [place] Rate: 87 P: 61 MT: 150 QRS: 99 QRSD: 101 T: 62 QT: 378 QTc: 457 Interpretive Statements SINUS RHYTHM WITH OCCASIONAL SUPRAVENTRICULAR PREMATURE COMPLEXES BORDERLINE RIGHT AXIS DEVIATION [QRS AXIS > 90] LOW QRS VOLTAGE IN PRECORDIAL LEADS [QRS DEFLECTION < 1.0 mV IN CHEST LEADS] No previous ECG available for comparison Electronically Signed On 06-15-2021 23:33:17 CDT by ONELIA GUZMAN [id number]
[2021-06-15 23:28] VITALS: BP 134/75; PULSE 89; O2SAT 95
[2021-06-15 23:29] LABS: SARS Covid-2 Antigen Positive (Negative)
[2021-06-15 23:43] LABS: Basophils # 0.1 10^3/uL (0.0-0.1); Eosinophils # 0.1 10^3/uL (0.0-0.8); Eosinophils % 1.4 %; Hematocrit 51.7 % (37.0-47.0); Hemoglobin 16.5 g/dL (11.5-15.3); Lymphocytes # 1.7 10^3/uL (0.8-4.8); Lymphocytes % 35.3 %; Mean Corpuscular HGB Conc 31.9 g/dL (30.0-36.0); Mean Corpuscular Hemoglobin 28.5 pg (28.0-34.0); Mean Corpuscular Volume 89.4 fL (81-99); Mean Platelet Volume 9.7 fL (7.4-10.4); Monocytes # 0.6 10^3/uL (0.2-0.9); Monocytes % 12.2 %; Neutrophils # 2.43 10^3/uL (1.8-7.7); Neutrophils % 49.3 %; Nucleated Red Blood Cells % 0 %; Platelet Count 250 10^3/cmm (130-400); Red Blood Count 5.78 10^6/uL (4.1-5.3); White Blood Count 4.9 10^3/uL (4.0-10.0)
[2021-06-15] MEDS: dexamethasone 10 mg/mL INJ 6 MG IVP (23:58)
[2021-06-16 00:04] VITALS: BP 156/113; PULSE 67; RESP 18; O2SAT 95
[2021-06-16 00:04] LABS: D Dimer 0.81 ug/mIFEU (0-0.59)
[2021-06-16 00:16] LABS: Troponin(5th) Baseline 6 ng/L (0-10)
[2021-06-16 00:23] LABS: Alanine Aminotransferase 33 U/L (0-33); Albumin Level 4.1 g/dL (3.5-5.2); Alkaline Phosphatase 61 IU/L (35-105); Anion Gap 13.7 (5-19); Aspartate Amino Transferase 32 U/L (0-32); Blood Urea Nitrogen 6 mg/dL (6-20); C Reactive Protein 8.1 mg/L (0.0-4.9); Calcium 8.8 mg/dL (8.5-10.5); Carbon Dioxide 29 mmol/L (22-29); Chloride 96 mmol/L (98-107); Creatine Phosphokinase 54 U/L (26-192); Globulin 2.8 g/dL (1.3-4.6); Glomerular Filtration Rate 126.7 mL/min (90-130); Glucose 108 mg/dL (65-115); NT Pro B Type Natriuretic Pept 15 pg/mL (0-125); Osmolality Calculated 278 mOsm/kg (285-295); Potassium 3.7 mmol/L (3.5-5.1); Sodium 135 mmol/L (136-145); Total Bilirubin 0.6 mg/dL (0.15-1.2); Total Protein 6.9 g/dL (6.6-8.7)
[2021-06-16 01:02] VITALS: BP 169/90; PULSE 92; RESP 18; O2SAT 93
[2021-06-16 01:23] VITALS: BP 173/112; PULSE 82; RESP 17; O2SAT 93
[2021-06-16 02:35] VITALS: BP 186/103; PULSE 96; RESP 17; O2SAT 93
--- NOTE | 2021-06-16 02:36 | PC.NURSE ---
Notified provider of patient's blood pressure. Orders received to continue with discharge.
== END 2021-06-16 02:40 | disposition home or self-care (01) ==
PROVIDERS: Emergency Provider Nurse Practitioner Family; PCP Nurse Practitioner Family
DX: U07.1 COVID-19 (principal); I10 Essential (primary) hypertension; E78.2 Mixed hyperlipidemia; Z87.891 Personal history of nicotine dependence; J44.9 Chronic obstructive pulmonary disease, unspecified
CPT/HCPCS: 36415; 71045; 80053; 82550; 83880; 84484; 85025; 85378; 86140; 87426; 93005; 96365; 96375; 99284; J1100

== ENCOUNTER → 2021-07-02 11:07 | Outpatient (BNVA) | payer MEDICAID, SELFPAY | PROVIDERS: PCP Nurse Practitioner Family; Visit Provider Nurse Practitioner Family | DX: I10 Essential (primary) hypertension (principal); K64.4 Residual hemorrhoidal skin tags; E78.2 Mixed hyperlipidemia; Z79.899 Other long term (current) drug therapy; E55.9 Vitamin D deficiency, unspecified | CPT/HCPCS: 80053; 80061; 81003; 82306; 83036; 84443; 85025 ==

== ENCOUNTER → 2021-07-16 14:59 | Outpatient (BNVA) | payer MEDICAID, SELFPAY | PROVIDERS: PCP Nurse Practitioner Family; Visit Provider Obstetrics & Gynecology | DX: Z30.2 Encounter for sterilization (principal); Z20.822 Contact with and (suspected) exposure to COVID-19 | CPT/HCPCS: 87635 ==

== ENCOUNTER 2021-07-21 07:06 | Day surgery (SDC) | payer MEDICAID, SELFPAY ==
[2021-07-17 11:42] VITALS: BMI 57.6
--- NOTE | 2021-07-17 11:57 | P.ANESASSM_ITS ---
Pre-Anesthetic Assessment Pre-Anesthetic Assessment: Height/Weight: Height 1.55 m Weight 138.346 kg Preop Diagnosis: ovarian cyst Proposed Procedure: Operation Date: 07/21/21 09:15 Proposed Procedures p Hysteroscopy w/ Myosure 94274 23381 N95.0 R93.89(Not Applicable) - Keisha Lester MD s Dilation And Curettage (D&C)(Not Applicable) - Keisha Lester MD Familial anesthetic complications: None Social: Social History: No alcohol and No tobacco Comment: former msoker Exam: Pre-Anes Outpt Exam: alert, oriented x 3, clear to auscultation bilat erally and regular rate & rhythm Airway: Cervical ROM: WNL MP: 4 Dentition: Chipped and Other (misisng, poor denititon) Pulmonary: Pulmonary: Asthma, COPD and Sleep apnea (cpap) Comments: covid- 19 in may CV/HEM: CV/HEM: HTN GI: GI: GERD Metabolic: Metabolic: Morbid obesity (super morbid obesity) Anesthetic Plan: ASA status: 3 Anesthesia: General Risk of > 500 ml blood loss (7ml/kg in children): No PFSH Anesthesia PFSH: Medical History Abscess of right breast Acute bacterial sinusitis Asthma, moderate persistent Back Pain Cellulitis Dysuria Environmental and seasonal allergies Patient has chronic seasonal and environmental allergies that are controlled with antihistamines External hemorrhoids GERD (gastroesophageal reflux disease) Patient has been controlled with Zantac in the past. Stopped Zantac due to recall by FDA Hypertension Patient's hypertension is controlled with antihpertensives. She does home BP monitoring. Medication management Mixed hyperlipidemia Moderate persistent asthma Patient has chronic asthma that is controlled with inhaler. Normal colonoscopy Colonoscopy 02/2019, normal repeat in 10 ears Stasis ulcer Tick bite Vitamin D deficiency Patient needs updated Vitamin D level. She cannot tolerate Vitamin D supplement at this time. Surgical History S/P cholecystectomy S/P hernia repair S/P shoulder surgery Family History Brother Stroke Hypertension Sister Stroke Clotting disorder x2 Thyroid disease Father Stroke Hyperlipidemia Hypertension Grandfather Clotting disorder Maternal Diabetes Maternal Cancer Maternal--stomach Mother Diabetes Hypertension Thyroid disease Family/Other Breast cancer Maternal aunt Denies family history of CAD (coronary artery disease) Bleeding disorder Social History Quit status (tobacco): has quit using tobacco Year quit tobacco: 1997 Former quit date comment: Hx of 2-4PPD x 20 Years Smoking risk assessment/counseling performed?: No Alcohol intake: former Counseling given: No Counseling given: No Lives independently: Yes Household members: significant other Marital status: Legally Current occupational status: disabled History of recent travel: No Current gender identity: Female Data Anesthesia Cardiac Studies: No Data to Display
[2021-07-17 12:10] LABS: Basophils # 0.1 10^3/uL (0.0-0.1); Basophils % 1.1 %; Eosinophils # 0.4 10^3/uL (0.0-0.8); Eosinophils % 4.4 %; Hematocrit 47.8 % (37.0-47.0); Hemoglobin 14.8 g/dL (11.5-15.3); Lymphocytes # 2.4 10^3/uL (0.8-4.8); Lymphocytes % 27.9 %; Mean Corpuscular Hemoglobin 28.5 pg (28.0-34.0); Mean Corpuscular Volume 92.1 fl (81-99); Mean Platelet Volume 9.1 fL (7.4-10.4); Monocytes # 0.9 10^3/uL (0.2-0.9); Monocytes % 10.8 %; Neutrophils # 4.55 10^3/uL (1.8-7.7); Neutrophils % 53.9 %; Nucleated Red Blood Cells % 0 %; Platelet Count 342 10^3/cmm (130-400); Red Blood Count 5.19 10^6/uL (4.1-5.3); Red Cell Distribution Width 14.6 % (12.1-15.1); White Blood Count 8.4 10^3/uL (4.0-10.0)
[2021-07-17 17:20] LABS: Blood Urea Nitrogen 6 mg/dL (6-20); Calcium 8.9 mg/dL (8.5-10.5); Carbon Dioxide 28 mmol/L (22-29); Chloride 102 mmol/L (98-107); Glomerular Filtration Rate 163.9 mL/min (90-130); Glucose 112 mg/dL (65-115); Osmolality Calculated 294 mOsm/kg (285-295); Sodium 143 mmol/L (136-145)
[2021-07-21] VITALS (11 sets, daily range): BP systolic 99–165; BP diastolic 72–96; PULSE 72–90; RESP 17–19; TEMP 36.6–36.8; O2SAT 92–97
[2021-07-21] MEDS: sodium chloride 0.9% 1,000 ML 30 ML IV (07:51)
--- NOTE | 2021-07-21 07:51 | P.ANESUD_ITS ---
Pre-Anesthetic Update Pre-Anesthetic Assessment: Date of Surgery/Procedure: 07/21/21 Preop Lauren gnosis: postmenopausal bleeding, thickened endometrium Proposed Procedure: Operation Date: 07/21/21 09:15 Proposed Procedures p Hysteroscopy w/ Myosure 30463 [id number] N95.0 R93.89(Not Applicable) - Keisha Lester MD s Dilation And Curettage (D&C)(Not Applicable) - Keisha Lester MD Any changes to Pre-Anesthetic Assessment?: No Last Intake: Intake Last Liquid Date 07/21/21 Last Liquid Time 06:00 Last Solid Date 07/20/21 Last Solid Time 18:00 Vitals: Temperature 97.8 F 07/21/21 07:25 Temperature Source Temporal Artery S can 07/21/21 07:25 Pulse Rate 90 07/21/21 07:25 Respiratory Rate 19 H 07/21/21 07:25 Blood Pressure 165/89 07/21/21 07:25 Blood Pressure Lety n 114 07/21/21 07:25 Pulse Oximetry 96 07/21/21 07:25 Oxygen Delivery Me thod 07/21/21 07:27 Exam: Pre-Anes Outpt Exam: alert, oriented x 3, clear to auscultation bilaterally and regular rate & rhythm Cardiac Studies: No Data to Display
--- NOTE | 2021-07-21 09:03 | W.PM.OPSUD ---
Surgery/Procedure H&P Update DATE OF PROCEDURE: July 21, 2021 DATE H&P PERFORMED: 07/16/21 H&P UPDATE INFORMATION: I have reviewed H&P completed within last 30 days, I have examined patient prior to procedure and No changes to prior documentation PREOP DIAGNOSIS: postmenopausal bleeding, thickened endometrium PLANNED PROCEDURE: Operation Date: 07/21/21 09:15 Proposed Procedures p Hysteroscopy w/ Myosure [id number] 16862 N95.0 R93.89(Not Applicable) - Keisha Lester MD s Dilation And Curettage (D&C)(Not Applicable) - Keisha Lester MD
--- NOTE | 2021-07-21 10:03 | PM.OP ---
Operative Report Date of procedure: July 21, 2021 Pre-op Diagnosis: postmenopausal bleeding, thickened endometrium Post-op diagnosis: same Post-op Findings: thickened endometrium with polyps and fibroids Procedure Done: hysteroscopy, dilation and curettage with myosure Specimens removed/disposition: endometrial curettings to pathology Surgeon: Keisha Lester Anesthesia: General Estimated blood loss (mL): 5 IV fluids (mL): 300 Complications: none Findings: thickened endometrium Condition: stable Disposition: PACU Brief History: The patient presented to the clinic for PMB. She had an ultrasound which showed a thickened endometrium. Her emb was normal Procedure: The patient was taken to the operating room where monitored anesthesia was administered and to be adequate. She was prepped and draped in the normal sterile fashion in the dorsal lithotomy position in Raul stirrups. A weighted speculum was placed into the vagina and the anterior lip of the cervix grasped with a single-tooth tenaculum. The uterus was sounded to 10 cm. The cervix was dilated to 16 [place]. The hysteroscope was advanced into the endometrial cavity. There was excessive tissue, fibroids, polyps, visualized. The MyoSure device was activated and the tissue was removed. Pictures were taken pre and post procedure. All instruments were removed. The patient tolerated the procedure well. Sponge lap and needle counts were correct x3. She was taken to the recovery room in stable condition.
--- NOTE | 2021-07-21 10:06 | P.PCN_ITS ---
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
--- NOTE | 2021-07-21 10:06 | PM.PACU ---
PACU note PACU note: VSS, Good respiratory effort, report to WORKERS COMPENSATION ADJUSTER Post-Anesthesia Exam: awake
--- NOTE | 2021-07-21 10:07 | PM.DCS ---
Discharge Providers Date of Discharge: July 21, 2021 Attending Provider at Discharge: Keisha Lester MD Primary Care Provider: SALOMON Mello Diagnoses at Discharge Discharge Diagnosis (1) Postoperative state: Status: Acute Reason for Visit Reason for Visit: hysteroscopy and D&C with myosure Hospital Course Hospital Course The patient was admitted for surgery. She did well postop and was ready for discharge. Discharge Data Data Completed and Pending: Pending at discharge Category Date Time Status ES surgery / GI i mages Routine Exams 07/21/21 08:30 Ordered Pathology: Surgic al [PTH] Routine Pth 07/21/21 10:03 Ordered Vitals: Last Vital Signs Temp 97.8 F 07/21/21 07:25 Pulse 90 07/21/21 07:25 Resp 19 H 07/21/21 07:25 BP 165/89 07/21/21 07:25 Pulse Ox 96 07/21/21 07:25 Discharge Plan Discharge Patient Disposition: Home Condition: Stable Prescriptions: Continued omega-3 fatty acids [Fish Oil Concentrate] 1,000 mg capsule 1,000 mg PO BID@0900,2100 RF: 0 hydrocortisone acetate [Anusol-HC] 25 mg suppository 25 mg NV Q12H PRN (Reason: hemorrhoids) 14 Days Qty: 24 RF: 1 hydrocortisone [Anusol-HC] 2.5 % cream with perineal applicator 1 applic NV DAILY PRN (Reason: hemorrhoids) 30 Days Qty: 30 RF: 2 albuterol sulfate [ProAir HFA] 90 mcg/actuation HFA aerosol inhaler 1 inh INHALATION Q4H PRN (Reason: shortness of breath or wheezing) 30 Days Qty: 8.5 RF: 5 Pepcid Complete 10-800-165 mg tablet,chewable 1 tab PO BID RF: 0 mupirocin 2 % ointment 1 applic topical BID PRN (Reason: cellulitis) 30 Days Qty: 22 RF: 0 diphenhydramine HCl [Benadryl Allergy] 25 mg tablet 25 mg PO TID PRN (Reason: allergy symptoms) Qty: 120 RF: 2 albuterol sulfate 2.5 mg /3 mL (0.083 %) solution for nebulization 2.5 mg inhalation Q4H PRN (Reason: shortness of breath or wheezing) Qty: 180 RF: 1 rosuvastatin [Crestor] 5 mg tablet 5 mg PO DAILY Qty: 90 RF: 0 cholecalciferol (vitamin D3) 1,250 mcg (50,000 unit) capsule 50,000 unit PO .weekly Qty: 4 RF: 2 misoprostol 200 mcg Tablet 200 mcg PO QID RF: 0 prednisone 10 mg tablet 10 mg PO DAILY PRN (Reason: UNKNOWN) RF: 0 hydrocortisone acetate 0.5 % Cream 1 applic TOPICAL BID PRN (Reason: UKNOWN) RF: 0 amlodipine 10 mg tablet 10 mg PO DAILY@0900 RF: 0 fluticasone propion-salmeterol [Advair Diskus] 500-50 mcg/dose blister with device 1 inh inhalation BID@0900,2100 RF: 0 montelukast [Singulair] 10 mg tablet 10 mg PO DAILY@0900 RF: 0 Discharge Orders: Discharge Order (Routine); Ordered 07/21/21 Ordered By: Keisha Lester Discharge Attestations Time Spent in Discharge Care*: less than 30 min Quality Metrics Clinical Quality Measures During this hospital stay, did patient experience: None Coding Level of Care Code Acute Chg FW DC note Diagnoses Postoperative state Z98.890
--- NOTE | 2021-07-21 10:15 | SUR.PHASEI ---
PT AWAKE ALERT SITTING AT 45 DEGREES PT TAKING ICE CHIPS PT SATS 90% ON RA, PT STATES THAT SHE USES 3LNC AT HOME AT NIGHT. PT PLACED ON 3LNC SATS UP TO 945 VSS. PT TAKING ICE CHIPS DENIES PAIN AND NAUSEA.
--- NOTE | 2021-07-21 15:35 | ANE.PACU2 ---
Inpatient post-anesthesia follow up: Airway intact: Yes Vital signs: Temperature 98.3 F Pulse Rate 72 Respiratory Rate 19 Blood Pressure 145/80 Pulse Oximetry 95 Oxygen Delivery Me thod Room Air Oxygen Flow Rate 0.5 Fraction of Inspir ed Oxygen Hydration adequate: Yes Nausea and vomiting: No Pain level: 2 Mental status: Baseline
== END 2021-07-21 12:06 | disposition home or self-care (01) ==
PROVIDERS: PCP Nurse Practitioner Family; Visit Provider Obstetrics & Gynecology
PROC: 0UDB8ZZ Extraction of Endometrium, Via Natural or Artificial Opening Endoscopic (ICD-10-PCS; CPT 58558; principal; 2021-07-21 09:15)
PROC: (CPT 58120; 2021-07-21 09:15)
DX: N95.0 Postmenopausal bleeding (principal); R93.89 Abnormal findings on diagnostic imaging of other specified body structures; Z87.891 Personal history of nicotine dependence; J44.9 Chronic obstructive pulmonary disease, unspecified; G47.30 Sleep apnea, unspecified; I10 Essential (primary) hypertension; K21.9 Gastro-esophageal reflux disease without esophagitis; Z86.16 Personal history of COVID-19; E66.01 Morbid (severe) obesity due to excess calories; Z68.43 Body mass index [BMI] 50.0-59.9, adult; E78.2 Mixed hyperlipidemia
CPT/HCPCS: 58558; 80048; 85025; 88305; 96365; J0330; J0690; J1100; J2405; J2704; J3010; J3490; J7030

== ENCOUNTER → 2022-02-11 16:05 | Outpatient (BNVA) | payer MEDICAID, SELFPAY | PROVIDERS: PCP Nurse Practitioner Family; Visit Provider Nurse Practitioner Family | DX: E55.9 Vitamin D deficiency, unspecified (principal); R74.8 Abnormal levels of other serum enzymes | CPT/HCPCS: 80053; 82306 ==

== ENCOUNTER 2023-01-02 16:39 | Emergency (ER) | payer MEDICAID, SELFPAY ==
[2023-01-02 16:52] VITALS: BP 198/108; PULSE 94; RESP 19; TEMP 37; O2SAT 93; BMI 53.1
--- NOTE | 2023-01-02 17:00 | ECG_ITS ---
[facility] Test Date: 2023-01-02 Pat Name: Caren Mulligan Department: Room: Gender: Female Specialist Physician: : [id number] Requested By: John Lea Order Number: [id number] Keagan MD: Dena Mariscal M.D. Measurements Intervals [place] Rate: 90 P: 74 PA: 144 QRS: 85 QRSD: 95 T: 61 QT: 358 QTc: 439 Interpretive Statements SINUS RHYTHM LOW QRS VOLTAGE IN PRECORDIAL LEADS [QRS DEFLECTION < 1.0 mV IN CHEST LEADS] INCOMPLETE RIGHT BUNDLE BRANCH BLOCK [90+ ms QRS DURATION, TERMINAL R IN V1/V2, 40+ ms S IN I/aVL/V4/V5/V6] Compared to ECG 06/15/2021 23:08:26 Incomplete right bundle-branch block now present Electronically Signed On 01-02-2023 22:07:59 GENERAL OFFICE CLERK by Dena Mariscal M.D. [id number]
--- NOTE | 2023-01-02 17:27 | CTR_ITS ---
PROCEDURE INFORMATION: Exam: CT Head Without Contrast Exam date and time: 01/02/2023 5:49 PM Age: 62 years old Clinical indication: Pain; Headache; Other: JACKSON w/dizziness TECHNIQUE: Imaging protocol: Computed tomography of the head without contrast. Radiation optimization: All CT scans at this facility use at least one of these dose optimization techniques: automated exposure control; mA and/or kV adjustment per patient size (includes targeted exams where dose is matched to clinical indication); or iterative reconstruction. Other protocol: This patient has received 0 known CTs and 0 known cardiac nuclear medicine studies in the 12 months prior to the current study. COMPARISON: No relevant prior studies available. RADIATION DOSE METRICS: Total DLP (mGy-cm): 1058.25 FINDINGS: Brain: Normal. No hemorrhage. Unremarkable white matter. No mass effect. Cerebral ventricles: No ventriculomegaly. Paranasal sinuses: Visualized sinuses are unremarkable. Trace mucosal thickening. No fluid levels. Mastoid air cells: Visualized mastoid air cells are well aerated. Bones/joints: Unremarkable. No acute fracture. Soft tissues: Unremarkable. CT/CT head wo con* [id number] IMPRESSION: No acute intracranial abnormality.
--- NOTE | 2023-01-02 17:27 | XRR_ITS ---
PROCEDURE INFORMATION: Exam: XR Chest Exam date and time: 01/02/2023 5:36 PM Age: 62 years old Clinical indication: Dyspnea; Additional info: Dizziness TECHNIQUE: Imaging protocol: Radiologic exam of the chest. Views: 1 view. COMPARISON: CR XR chest 1V portable [id number] 06/15/2021 7:06 PM FINDINGS: Lungs: Unremarkable. No consolidation. Unchanged linear scar left lung. Pulmonary vascularity is within normal limits. Pleural spaces: Unremarkable. No pleural effusion. No pneumothorax. Heart/Mediastinum: There is cardiomegaly. Bones/joints: No acute abnormality. XR/XR chest 1V portable [id number] IMPRESSION: No acute findings.
--- NOTE | 2023-01-02 17:28 | W.ED.DIZZY ---
HPI - Dizziness General: Chief Complaint: Dizziness Stated Complaint: dizzy, neck and back pian Time Seen by Provider: 01/02/23 17:08 History of Present Illness: HPI Narrative: Patient is a 62-year-old female comes to the ED with episodic dizziness. Symptoms started approximately a little over a week ago. She said at that time she went to [facility] and was checked out there in the emergency department and they told her she just had vertigo. She then went and saw her primary care physician a couple days later and she was diagnosed with an ear infection and put on a steroid and antibiotic. Patient has completed all of her antibiotic and steroid course and symptoms still persist. She has episodes of dizziness that occur when she is laying down and turns her head to the right. She says she will also have the same episodes of dizziness when she is up walking around or if she is sitting down. She describes the dizziness as room spinning. The episodes last for approximately about 5 minutes. Denies any head trauma or falls. Denies numbness/tingling or weakness to 1 side of her body or face, headache, chest pain, shortness of breath, abdominal pain, nausea/vomiting, bladder or bowel symptoms. Associated symptoms: Denies chest pain, chills, headache(s), nausea, nasal congestion, palpitations or vomiting Associated neuro symptoms: Deny numbness in extremities Review of Systems Const: Denies: fever(s), chills or fatigue Eyes: Denies: change in vision or eye discomfort ENMT: Denies: throat pain, odynophagia, nasal discharge or nasal congestion Card: Denies: chest pain, palpitations, edema, swelling of feet/ankles, dyspnea on exertion or orthopnea Resp: Denies: dyspnea, productive cough or non-productive cough GI: Denies: abdominal pain, nausea, vomiting, diarrhea, constipation or hematochezia : Denies: flank pain, dysuria or hematuria Musc: Denies: neck pain, back pain or extremity swelling Skin/Breast: Denies: rash or new lesions Neuro: Reports: dizziness and vertigo; Denies: headache(s), numbness in extremities or weakness in extremities [facility] ED PFSH: Medical History Abscess of right breast Acute bacterial sinusitis Asthma, moderate persistent Back Pain Cellulitis Dysuria Elevated liver enzymes Environmental and seasonal allergies Patient has chronic seasonal and environmental allergies that are controlled with antihistamines External hemorrhoids GERD (gastroesophageal reflux disease) Patient has been controlled with Zantac in the past. Stopped Zantac due to recall by FDA Hypertension Patient's hypertension is controlled with antihpertensives. She does home BP monitoring. Medication management Mixed hyperlipidemia Moderate persistent asthma Patient has chronic asthma that is controlled with inhaler. Normal colonoscopy Colonoscopy 02/2019, normal repeat in 10 ears Stasis ulcer Tick bite Vitamin D deficiency Patient needs updated Vitamin D level. She cannot tolerate Vitamin D supplement at this time. Surgical History History of kidney surgery S/P cholecystectomy S/P hernia repair S/P shoulder surgery Family History Brother Stroke Hypertension Sister Stroke Clotting disorder x2 Thyroid disease Father Stroke Hyperlipidemia Hypertension Grandfather Clotting disorder Maternal Diabetes Maternal Cancer Maternal--stomach Mother Diabetes Hypertension Thyroid disease Family/Other Breast cancer Maternal aunt Denies family history of CAD (coronary artery disease) Bleeding disorder Social History Smoking and tobacco status: never smoked Quit status (tobacco): has quit using tobacco Year quit tobacco: 1997 Former quit date comment: Hx of 2-4PPD x 20 Years Smoking risk assessment/counseling performed?: No Alcohol intake: former Counseling given: No Counseling given: No Lives independently: Yes Household members: significant other Marital status: Legally Current occupational status: disabled Current gender identity: Female Physical Exam Const: COMMON NORMALS: no acute distress, patient oriented x3 and alert GENERAL APPEARANCE: cooperative HENMT: COMMON NORMALS: normocephalic HEAD & SCALP: normocephalic MOUTH: Normal oral and palatal mucosa present THROAT: posterior oropharynx normal and uvula midline Eye: COMMON NORMALS: Equal, round and reactive pupils present, EOMs intact bilaterally and conjunctivae normal CONJUNCTIVA: Yes conjunctivae normal PUPIL: Yes Equal, round and reactive pupils present OTHER: Patient has nystagmus with ocular movements to the left. Neck/C-Spine: COMMON NORMALS: supple GENERAL: Yes normal visual inspection Resp: COMMON NORMALS: normal respiratory effort, No retractions, No use of accessory muscles and clear to auscultation bilaterally AUSCULTATION: clear to auscultation bilaterally Cardio: COMMON NORMALS: regular rate, regular rhythm, S1 normal heart sound present, S2 normal heart sound present, No gallops present (Cardio), No clicks present (Cardio), No murmurs present (Cardio) and Peripheral pulses 2+ throughout RATE: regular rate RHYTHM: regular rhythm HEART SOUNDS: S1 normal heart sound present and S2 normal heart sound present PERIPHERAL PULSES: Peripheral pulses 2+ throughout GI: COMMON NORMALS: Normal to inspection, nondistended, normoactive bowel sounds present, Soft to palpation, non-tender and no masses PALPATION: Yes Soft to palpation : COMMON NORMALS: Yes no CVA tenderness BLADDER/KIDNEY EXAM: Yes no CVA tenderness Back/Pelvis: COMMON NORMALS: no CVA tenderness Extremity: COMMON NORMALS: normal to inspection Neuro: COMMON NORMALS: patient oriented x3, CN's II-XII intact bilaterally and moves all extremities SENSORIUM/ORIENTATION: Yes alert GAIT: Yes Normal gait present Skin: GENERAL SKIN EXAM: dry skin Course Vital Signs: Vital signs: Vital Signs Temperature 98.6 F 01/02/23 16:52 Pulse Rate 76 01/02/23 19:33 Respiratory Rate 18 01/02/23 19:33 Blood Pressure 198/108 01/02/23 16:52 Pulse Oximetry 93 01/02/23 19:33 Oxygen Delivery Me thod 01/02/23 16:52 [facility] - Dizziness Medical Decision Making Patient is a 62-year-old female comes to the ED with episodic dizziness. Symptoms started approximately a little over a week ago. She states that when she is laying down and turns her head to the right she gets dizzy. Denies any recent head injury. She said at that time she went to [facility] and was checked out there in the emergency department and they told her she just had vertigo. Vitals are stable here in the ED. Neuro exam shows no deficits. She does have some nystagmus with eye movements to the left. Rest of exam is benign. Labs are unremarkable. Chest x-ray shows no acute findings. EKG shows normal sinus rhythm with no ST segment elevation or depression seen. Head CT showed no acute findings. Given patient's symptoms and exam findings she is diagnosed with benign paroxysmal positional vertigo. She was discharged home with a prescription for meclizine and given some instructions on at home exercises she can do to help with her symptoms. She was told to follow-up with her PCP within the next 3 to 5 days for reevaluation. Return to ED precautions given. Patient understood agree with plan. Lab Data I reviewed the patient's lab results. 01/02/23 17:42 01/02/23 17:42 Radiology Impressions Chest X-Ray 01/02/23 17:27 IMPRESSION: No acute findings. Head CT 01/02/23 17: IMPRESSION: No acute intracranial abnormality. Laboratory Results WBC 12.7 10^3/uL (4.0-10.0) H 01/02/23 17:42 RBC 5.26 10^6/uL (4.1-5.3) 01/02/23 17:42 Hgb 14.7 g/dL (11.5-15.3) 01/02/23 17:42 Hct 47.4 % (37.0-47.0) H 01/02/23 17:42 MCV 90.1 fl (81-99) 01/02/23 17:42 MCH 27.9 pg (28.0-34.0) L 01/02/23 17:42 MCHC 31.0 g/dL (30.0-36.0) 01/02/23 17:42 RDW 14.2 % (12.1-15.1) 01/02/23 17:42 Plt Count 416 10^3/cmm (130-400) H 01/02/23 17:42 MPV 8.9 fL (7.4-10.4) 01/02/23 17:42 Neut % (Auto) 58.3 % 01/02/23 17:42 Lymph % (Auto) 27.0 % 01/02/23 17:42 [place] % (Auto) 10.0 % 01/02/23 17:42 Eos % (Auto) 2.5 % 01/02/23 17:42 Baso % (Auto) 1.3 % 01/02/23 17:42 Neut # (Auto) 7.37 10^3/uL (1.8-7.7) 01/02/23 17:42 Lymph # (Auto) 3.4 10^3/uL (0.8-4.8) 01/02/23 17:42 [place] # (Auto) 1.3 10^3/uL (0.2-0.9) H 01/02/23 17:42 Eos # (Auto) 0.3 10^3/uL (0.0-0.8) 01/02/23 17:42 Baso # (Auto) 0.2 10^3/uL (0.0-0.1) H 01/02/23 17:42 Nucleated RBC % (auto) 0 % 01/02/23 17:42 Nucleated RBCs # 0.0 /100WBC 01/02/23 17:42 Sodium 139 mmol/L (136-145) 01/02/23 17:42 Potassium 4.1 mmol/L (3.5-5.1) 01/02/23 17:42 Chloride 98 mmol/L (98-107) 01/02/23 17:42 Carbon Dioxide 30 mmol/L (22-29) H 01/02/23 17:42 Anion Gap 15.1 (5-19) 01/02/23 17:42 BUN 19 mg/dL (8-23) 01/02/23 17:42 Creatinine 0.9 mg/dL (0.5-0.9) 01/02/23 17:42 GFR Calculation 63.9 mL/min (90-130) L 01/02/23 17:42 Glucose 97 mg/dL (65-115) 01/02/23 17:42 Calculated Osmolality 290 mOsm/kg (285-295) 01/02/23 17:42 Calcium 9.6 mg/dL (8.5-10.5) 01/02/23 17:42 Urine Color Yellow (Yellow) 01/02/23 18:30 Urine Appearance Clear (CLEAR) 01/02/23 18:30 Urine pH 7 (5-7) 01/02/23 18:30 Ur Specific [place] 1.010 (1.005-1.030) 01/02/23 18:30 Urine Protein Neg (Negative) 01/02/23 18:30 Urine Glucose (UA) Norm (Normal) 01/02/23 18:30 Urine Ketones Negative (Negative) 01/02/23 18:30 Urine Blood Neg (Negative) 01/02/23 18:30 Urine Nitrate Negative (Negative) 01/02/23 18:30 Urine Bilirubin Neg (Negative) 01/02/23 18:30 Urine Urobilinogen Neg mg/dL (Negative) 01/02/23 18:30 Ur Leukocyte Esterase Negative (Negative) 01/02/23 18:30 EKG Data EKG 1: EKG interpretation date: 01/02/23 Interpretation: Normal sinus rhythm, no ST segment elevation or depression seen. 90 bpm. Discharge Plan Discharge Patient Disposition: Home Clinical Impression: Benign paroxysmal positional vertigo Qualifiers: Laterality: unspecified laterality Qualified Code(s): H81.10 - Benign paroxysmal vertigo, unspecified ear Condition: Stable Prescriptions: New meclizine 25 mg tablet 25 mg PO BID PRN (Reason: dizziness) Qty: 20 0RF No Action medroxyprogesterone [Provera] 2.5 mg tablet 2.5 mg PO DAILY Qty: 90 5RF mupirocin calcium 2 % cream 1 applic topical DAILY Qty: 15 0RF ascorbic acid (vitamin C) 500 mg capsule PO prednisone 20 mg tablet 20 mg PO DAILY 7 Days Qty: 7 0RF cephalexin 500 mg capsule 500 mg PO TID 7 Days Qty: 21 0RF albuterol sulfate 2.5 mg /3 mL (0.083 %) solution for nebulization 2.5 mg inhalation Q4H PRN (Reason: shortness of breath or wheezing) Qty: 180 1RF amlodipine 10 mg tablet 10 mg PO DAILY@0900 Qty: 90 1RF diphenhydramine HCl [Benadryl Allergy] 25 mg tablet 25 mg PO TID PRN (Reason: allergy symptoms) Qty: 120 2RF montelukast 10 mg tablet See Rx Instructions .ROUTE .COMPLEX Qty: 30 5RF Dose Instruction: TAKE 1 TABLET BY MOUTH DAILY AT 9 AM Rx Instructions: TAKE 1 TABLET BY MOUTH DAILY AT 9 AM albuterol sulfate [ProAir HFA] 90 mcg/actuation HFA aerosol inhaler See Rx Instructions .ROUTE .COMPLEX Qty: 8.5 2RF Dose Instruction: INHALE 1 PUFF BY MOUTH EVERY 4 HOURS NEEDED FOR SHORTNESS OF BREATH OR WHEEZING Rx Instructions: INHALE 1 PUFF BY MOUTH EVERY 4 HOURS NEEDED FOR SHORTNESS OF BREATH OR WHEEZING rosuvastatin [Crestor] 5 mg tablet 5 mg PO DAILY Qty: 90 1RF Discharge Orders: Discharge ED (Routine); Ordered 01/02/23 Ordered By: Rogelio Gonsalez Referrals: Antonio Echeverria FNP [Primary Care Provider] - Discharge Diet: Regular Discharge Activity: Increase activity as tolerated Patient Instructions: Benign Paroxysmal Positional Vertigo (ED), Dizziness (ED) Activity Restrictions/Additional Instructions: Follow-up with medical provider as directed in the next 5 to 7 days for reevaluation. Take medications as prescribed. I included a printout of some exercises you can perform to help with your symptoms. Also talk with your primary care doctor about referral to physical therapist to help with symptoms as well. Return to the ER or your medical provider if condition worsens. Please read and understand discharge instructions. Thank you for choosing [facility] for your healthcare needs today. Please realize this is an emergency room and that we are providing you with a medical screening exam and this may not be complete and all inclusive of all the testing and or work up that you may need to determine your ailment or severity of your illness. It is very important that you follow up as instructed or that you return to the Emergency Department should you have concerns or if your condition changes or worsens in any way. Coding Level of Care Code ED Medical Receptionist Medical Assistant for Jose Shin
[2023-01-02 17:50] LABS: Basophils # 0.2 10^3/uL (0.0-0.1); Basophils % 1.3 %; Eosinophils # 0.3 10^3/uL (0.0-0.8); Eosinophils % 2.5 %; Hematocrit 47.4 % (37.0-47.0); Hemoglobin 14.7 g/dL (11.5-15.3); Lymphocytes # 3.4 10^3/uL (0.8-4.8); Mean Corpuscular Hemoglobin 27.9 pg (28.0-34.0); Mean Corpuscular Volume 90.1 fl (81-99); Mean Platelet Volume 8.9 fL (7.4-10.4); Monocytes # 1.3 10^3/uL (0.2-0.9); Neutrophils # 7.37 10^3/uL (1.8-7.7); Neutrophils % 58.3 %; Nucleated Red Blood Cells % 0 %; Platelet Count 416 10^3/cmm (130-400); Red Blood Count 5.26 10^6/uL (4.1-5.3); Red Cell Distribution Width 14.2 % (12.1-15.1); White Blood Count 12.7 10^3/uL (4.0-10.0)
[2023-01-02 18:05] LABS: Blood Urea Nitrogen 19 mg/dL (8-23); Calcium 9.6 mg/dL (8.5-10.5); Carbon Dioxide 30 mmol/L (22-29); Chloride 98 mmol/L (98-107); Glomerular Filtration Rate 63.9 mL/min (90-130); Glucose 97 mg/dL (65-115); Osmolality Calculated 290 mOsm/kg (285-295); Sodium 139 mmol/L (136-145)
[2023-01-02 18:22] LABS: Anion Gap 15.1 (5-19); Potassium 4.1 mmol/L (3.5-5.1)
--- NOTE | 2023-01-02 18:52 | PC.NURSE ---
REPORT GIVEN TO [facility]QU[facility] MONTES ASSUMED CARE.
[2023-01-02 18:58] LABS: Add Urine Microscopic? NO; Charge for UA Resulting for Rev
[2023-01-02 19:03] LABS: Bilirubin Urine Neg (Negative); Blood Urine Neg (Negative); Glucose Urine UA Norm (Normal); Ketones Urine Negative (Negative); Leukocyte Esterase Urine Negative (Negative); Nitrate Urine Negative (Negative); Protein Urine Neg (Negative); Urine Appearance Clear (CLEAR); Urine Color Yellow (Yellow); Urobilinogen Urine Neg (Negative); pH Urine 7 (5-7)
[2023-01-02 19:33] VITALS: PULSE 76; RESP 18; O2SAT 93
== END 2023-01-02 19:34 | disposition home or self-care (01) ==
PROVIDERS: Emergency Provider Physician Assistant; PCP Nurse Practitioner Family
DX: H81.10 Benign paroxysmal vertigo, unspecified ear (principal); Z87.891 Personal history of nicotine dependence; I10 Essential (primary) hypertension; E78.2 Mixed hyperlipidemia
CPT/HCPCS: 70450; 71045; 80048; 81003; 85025; 93005; 99285

== ENCOUNTER → 2023-02-09 15:17 | Outpatient (BNVA) | payer MEDICAID, SELFPAY | PROVIDERS: PCP Nurse Practitioner Family; Visit Provider Obstetrics & Gynecology | DX: Z01.419 Encounter for gynecological examination (general) (routine) without abnormal findings (principal); Z30.9 Encounter for contraceptive management, unspecified | CPT/HCPCS: 87624 ==

== ENCOUNTER 2023-08-21 19:23 | Emergency (ER) | payer MEDICAID, SELFPAY ==
[2023-08-21 19:26] VITALS: BP 177/76; PULSE 90; RESP 17; TEMP 36.9; O2SAT 95; BMI 48.3
--- NOTE | 2023-08-21 19:55 | ED_ITS ---
HPI - COVID General: Chief Complaint: COVID symptoms Stated Complaint: sore throat,fever,cough,chills Time Seen by Provider: 08/21/23 19:30 History of Present Illness: Patient states she was exposed to COVID yesterday and this morning she woke up with hot flashes possible fever and chills, nausea and overall body aches. Patient wants tested for COVID. COVID Results: SARS-CoV-2 Antigen (Rapid) negative (Negative) 08/21/23 19:50 Nasal/Oral Coronavirus 2019 PCR Not detected 07/16/21 14:59 Review of Systems General: Reports: 10 or more systems reviewed and unremarkable except in HPI and below PFSH ED PFSH: Medical History Abscess of right breast Acute bacterial sinusitis Asthma, moderate persistent Back Pain Cellulitis Dysuria Elevated liver enzymes Environmental and seasonal allergies Patient has chronic seasonal and environmental allergies that are controlled with antihistamines External hemorrhoids GERD (gastroesophageal reflux disease) Patient has been controlled with Zantac in the past. Stopped Zantac due to recall by FDA Hypertension Patient's hypertension is controlled with antihpertensives. She does home BP monitoring. Medication management Mixed hyperlipidemia Moderate persistent asthma Patient has chronic asthma that is controlled with inhaler. Normal colonoscopy Colonoscopy 02/2019, normal repeat in 10 ears Stasis ulcer Tick bite Vitamin D deficiency Patient needs updated Vitamin D level. She cannot tolerate Vitamin D supplement at this time. Surgical History History of kidney surgery S/P cholecystectomy S/P hernia repair S/P shoulder surgery Family History Brother Stroke Hypertension Sister Stroke Clotting disorder x2 Thyroid disease Father Stroke Hyperlipidemia Hypertension Grandfather Clotting disorder Maternal Diabetes Maternal Cancer Maternal--stomach Mother Diabetes Hypertension Thyroid disease Family/Other Breast cancer Maternal aunt Denies family history of CAD (coronary artery disease) Bleeding disorder Social History Substance/Drug Use: never Do you think of yourself as: Straight/Heterosexual Physical Exam Const: COMMON NORMALS: no acute distress, average body habitus, patient o riented x3, no limitations, healthy appearing, alert and well nourished HENMT: COMMON NORMALS: normocephalic, atraumatic, hearing grossly normal b ilaterally, external ears normal, Normal external nose present and moist oral mucous membranes HEAD & SCALP: normocephalic and atraumatic NOSE: Normal external nose present EXTERNAL EAR: Yes external ears normal Neck/C-Spine: COMMON NORMALS: full ROM, no lymphadenopathy, supple, no meningeal signs, no JVD and Thyroid normal THYROID: Thyroid normal Lymph: LYMPHATIC: no lymphadenopathy noted Chest: COMMONS NORMALS: normal inspection of the chest and normal palpation of entire chest wall Cardio: COMMON NORMALS: no JVD, regular rate, regular rhythm, S1 normal heart sound present, S2 normal heart sound present, No gallops present (Cardio), No clicks present (Cardio), No murmurs present (Cardio) and No rub (Cardio) RATE: regular rate RHYTHM: regular rhythm HEART SOUNDS: S1 normal heart sound present and S2 normal heart sound present GI: COMMON NORMALS: Normal to inspection, nondistended, normoactive bowel sounds present, Soft to palpation, non-tender, No hepatosplenomegaly present and no masses PALPATION: Yes Soft to palpation and Yes No hepatosplenomegaly present : COMMON NORMALS: Yes no CVA tenderness BLADDER/KIDNEY EXAM: Yes no CVA tenderness Back/Pelvis: COMMON NORMALS: no CVA tenderness Neuro: COMMON NORMALS: patient oriented x3 SENSORIUM/ORIENTATION: Yes alert MENINGEAL SIGNS: Yes no meningeal signs Course Vital Signs: Vital signs: Vital Signs Temperature 98.4 F 08/21/23 19:26 Pulse Rate 90 08/21/23 19:26 Respiratory Rate 17 08/21/23 19:26 Blood Pressure 177/76 08/21/23 19:26 Pulse Oximetry 96 08/21/23 19:59 Oxygen Delivery Me thod Room Air 08/21/23 19:59 MDM - COVID Medical Decision Making Patient was exposed to COVID yesterday and presented to the ER today with complaints of fever chills coughs and wanted to be tested for COVID. Patient was tested for COVID and results are pending. COVID test came back negative patient will be discharged home with a diagnosis of viral syndrome. Differential Diagnosis Unlikely COVID 19, influenza, other viral infection, bacterial infection, pneumonia, copd exacerbation, pulmonary embolism, NSTEMI/STEMI, CHF exacerbation, stroke or overdose/intoxication Medical Records I reviewed the patient's medical records. Lab Data I reviewed the patient's lab results. Laboratory Results SARS-CoV-2 Ag (Rapid) negative (Negative) 08/21/23 19:50 SARS-CoV-2 Antigen (Rapid) negative (Negative) 08/21/23 19:50 Nasal/Oral Coronavirus 2019 PCR Not detected 07/16/21 14:59 No radiology studies performed this visit Discharge Plan Discharge Patient Disposition: Home Clinical Impression: Viral infection Condition: Stable Prescriptions: No Action medroxyprogesterone [Provera] 2.5 mg tablet 2.5 mg PO DAILY Qty: 90 5RF mupirocin calcium 2 % cream 1 applic topical DAILY Qty: 15 0RF ascorbic acid (vitamin C) 500 mg capsule PO prednisone 20 mg tablet 20 mg PO DAILY 7 Days Qty: 7 0RF Mirena 21 mcg/24 hours (8 yrs) 52 mg intrauterine device intrauterine albuterol sulfate 2.5 mg /3 mL (0.083 %) solution for nebulization 2.5 mg inhalation Q4H PRN (Reason: shortness of breath or wheezing) Qty: 180 1RF diphenhydramine HCl [Benadryl Allergy] 25 mg tablet 25 mg PO TID PRN (Reason: allergy symptoms) Qty: 120 2RF albuterol sulfate [ProAir HFA] 90 mcg/actuation HFA aerosol inhaler See Rx Instructions .ROUTE .COMPLEX Qty: 8.5 2RF Dose Instruction: INHALE 1 PUFF BY MOUTH EVERY 4 HOURS NEEDED FOR SHORTNESS OF BREATH OR WHEEZING Rx Instructions: INHALE 1 PUFF BY MOUTH EVERY 4 HOURS NEEDED FOR SHORTNESS OF BREATH OR WHEEZING montelukast 10 mg tablet See Rx Instructions .ROUTE .COMPLEX Qty: 30 0RF Dose Instruction: TAKE 1 TABLET BY MOUTH ONCE DAILY AT 9 AM Rx Instructions: TAKE 1 TABLET BY MOUTH ONCE DAILY AT 9 AM amlodipine 10 mg tablet See Rx Instructions .ROUTE .COMPLEX Qty: 90 0RF Dose Instruction: TAKE 1 TABLET BY MOUTH ONCE DAILY AT 0900 Rx Instructions: TAKE 1 TABLET BY MOUTH ONCE DAILY AT 0900 rosuvastatin 5 mg tablet See Rx Instructions .ROUTE .COMPLEX Qty: 90 0RF Dose Instruction: Take 1 tablet by mouth once daily Rx Instructions: Take 1 tablet by mouth once daily meclizine 25 mg tablet 25 mg PO BID PRN (Reason: dizziness) Qty: 20 0RF Discharge Orders: Discharge ED (Routine); Ordered 08/21/23 Ordered By: Ace Martinez Referrals: Antonio Echeverria FNP [Primary Care Provider] - 1 week Patient Instructions: Viral Syndrome - Adult Activity Restrictions/Additional Instructions: Your COVID test were negative. You may have a another upper respiratory virus. Please follow-up with your family practice doctor within 7 days or sooner as needed for further evaluation and treatment. Coding Level of Care Code ED Integration Engineer for Jose Shin
[2023-08-21 19:59] VITALS: O2SAT 96
[2023-08-21 20:18] LABS: SARS Covid-2 Antigen negative (Negative)
[2023-08-21 20:35] VITALS: BP 135/96; PULSE 88; RESP 18; O2SAT 95
== END 2023-08-21 20:36 | disposition home or self-care (01) ==
PROVIDERS: Emergency Provider Emergency Medicine; PCP Nurse Practitioner Family
DX: B34.9 Viral infection, unspecified (principal); Z11.52 Encounter for screening for COVID-19; I10 Essential (primary) hypertension; E78.2 Mixed hyperlipidemia
CPT/HCPCS: 87426; 99283

== ENCOUNTER → 2023-09-13 13:29 | Outpatient (BNVA) | payer MEDICAID, SELFPAY | PROVIDERS: PCP Nurse Practitioner Family; Visit Provider Nurse Practitioner Family | DX: J44.9 Chronic obstructive pulmonary disease, unspecified (principal); Z79.899 Other long term (current) drug therapy; E78.2 Mixed hyperlipidemia; E55.9 Vitamin D deficiency, unspecified; I10 Essential (primary) hypertension; K21.9 Gastro-esophageal reflux disease without esophagitis | CPT/HCPCS: 80053; 80061; 81003; 82306; 83036; 84443; 85025 ==

== ENCOUNTER 2023-11-13 09:31 | Emergency (ER) | payer MEDICAID, SELFPAY ==
[2023-11-13 09:38] VITALS: BP 148/71; PULSE 87; RESP 16; TEMP 37.2; O2SAT 96; BMI 49.3
--- NOTE | 2023-11-13 09:40 | W.ED.ALLEREA ---
HPI - Allergic Reaction General: Chief complaint: Allergic Reaction Stated complaint: ALLERGIC REACTION Time Seen by Provider: 11/13/23 09:32 Source: patient Mode of arrival: EMS History of Present Illness: HPI narrative: 63-year-old female presents emergency room via EMS with onset of hives. She thinks it is from having eaten beef that it was not freshly cooked it had been cooked approximately an hour prior to her eating it. She has multiple food and drug allergies listed on her medication list. She has not had any difficulty breathing no wheezing she was given Benadryl and Solu-Medrol prior to arrival hives are limited to the upper portion of the trunk and the proximal arms. Associated symptoms: Deny abdominal pain Review of Systems Const: Denies: fever(s) or chills Card: Denies: chest pain Resp: Denies: dyspnea GI: Denies: abdominal pain : Denies: dysuria, urinary frequency or urinary urgency Musc: Denies: neck pain or back pain Skin/Breast: Denies: rash PFSH ED PFSH: Medical History Encounter for laboratory test Excessive cerumen in left ear canal Advanced COPD COPD with hypoxia Elevated liver enzymes External hemorrhoids Cellulitis Acute bacterial sinusitis Tick bite Medication management Mixed hyperlipidemia Asthma, moderate persistent Stasis ulcer Abscess of right breast Dysuria Back Pain GERD (gastroesophageal reflux disease) Patient has been controlled with Zantac in the past. Stopped Zantac due to recall by FDA Normal colonoscopy Colonoscopy 02/2019, normal repeat in 10 ears Vitamin D deficiency Patient needs updated Vitamin D level. She cannot tolerate Vitamin D supplement at this time. Environmental and seasonal allergies Patient has chronic seasonal and environmental allergies that are controlled with antihistamines Moderate persistent asthma Patient has chronic asthma that is controlled with inhaler. Hypertension Patient's hypertension is controlled with antihpertensives. She does home BP monitoring. Surgical History History of kidney surgery S/P shoulder surgery S/P hernia repair S/P cholecystectomy Family History Brother Stroke Hypertension Sister Stroke Clotting disorder x2 Thyroid disease Father Stroke Hyperlipidemia Hypertension Grandfather Clotting disorder Maternal Diabetes Maternal Cancer Maternal--stomach Mother Diabetes Hypertension Thyroid disease Family/Other Breast cancer Maternal aunt Denies family history of CAD (coronary artery disease) Bleeding disorder Social History Substance/Drug Use: never Do you think of yourself as: Straight/Heterosexual Physical Exam Const: COMMON NORMALS: no acute distress GENERAL APPEARANCE: cooperative and comfortable ORIENTATION/CONSCIOUSNESS: Yes awake, Yes oriented to person, Yes oriented to place and Yes oriented to time HENMT: COMMON NORMALS: normocephalic, atraumatic and hearing grossly normal bilaterally HEAD & SCALP: normocephalic and atraumatic Resp: COMMON NORMALS: normal respiratory effort, No retractions, No use of accessory muscles and clear to auscultation bilaterally AUSCULTATION: clear to auscultation bilaterally Cardio: COMMON NORMALS: regular rate, regular rhythm and No murmurs present (Cardio) RATE: regular rate RHYTHM: regular rhythm GI: COMMON NORMALS: Soft to palpation and No hepatosplenomegaly present AUSCULTATION: Yes normoactive bowel sounds PALPATION: Yes Soft to palpation, No Tenderness to palpation present (GI), No Guarding due to palpation present (GI) and Yes No hepatosplenomegaly present Extremity: COMMON NORMALS: normal to inspection, capillary refill normal, no clubbing, cyanosis or edema, no calf tenderness and no pedal edema Neuro: SENSORIUM/ORIENTATION: Yes oriented to person, Yes oriented to place and Yes oriented to time Skin: COMMON NORMALS: no rashes or lesions noted GENERAL SKIN EXAM: no rashes or lesions noted Course Vital Signs: Vital signs: Vital Signs Temperature 99.0 F 11/13/23 09:38 Pulse Rate 87 11/13/23 09:38 Respiratory Rate 16 11/13/23 09:38 Blood Pressure 148/71 11/13/23 09:38 Pulse Oximetry 96 11/13/23 09:38 MDM - Allergic Reaction Medical Decision Making Localized urticaria in the upper chest proximal arms. She is improving she received Solu-Medrol and Benadryl in route. She has multiple allergies to food and medications difficult to assess what might of triggered it she has no respiratory compromise at this time. Discharge home on steroid taper and regular of Benadryl. Encouraged her to discuss her primary care possible follow-up with telephone supervisor to review and clarify her allergy list Medical Records I reviewed the patient's medical records. Lab Data I reviewed the patient's lab results. No radiology studies performed this visit Discharge Plan Discharge Patient Disposition: Home Clinical Impression: Urticaria Condition: Stable Prescriptions: New prednisone 20 mg tablet 20 mg PO TID Qty: 15 0RF Rx Instructions: 1 p.o. 3 times daily x3 days, 1 p.o. twice daily x2 days, 1 p.o. daily x2 days diphenhydramine HCl 25 mg tablet 25 mg PO Q6H PRN (Reason: allergy symptoms) Qty: 20 0RF No Action medroxyprogesterone [Provera] 2.5 mg tablet 2.5 mg PO DAILY Qty: 90 5RF mupirocin calcium 2 % cream 1 applic topical DAILY Qty: 15 0RF ascorbic acid (vitamin C) 500 mg capsule PO Mirena 21 mcg/24 hours (8 yrs) 52 mg intrauterine device intrauterine ergocalciferol (vitamin D2) [Vitamin D2] 1,250 mcg (50,000 unit) capsule 50,000 unit PO DAILY 90 Days Qty: 90 1RF (DME) nebulizer See Rx Instructions .Route .MEDSUPPLY Qty: 1 0RF Rx Instructions: As directed diphenhydramine HCl [Benadryl Allergy] 25 mg tablet 25 mg PO TID PRN (Reason: allergy symptoms) Qty: 120 2RF albuterol sulfate 2.5 mg /3 mL (0.083 %) solution for nebulization See Rx Instructions .ROUTE .COMPLEX Qty: 180 0RF Dose Instruction: USE 1 VIAL IN NEBULIZER EVERY 4 HOURS NEEDED FOR SHORTNESS OF BREATH OR WHEEZING Rx Instructions: USE 1 VIAL IN NEBULIZER EVERY 4 HOURS NEEDED FOR SHORTNESS OF BREATH OR WHEEZING amlodipine 10 mg tablet See Rx Instructions .ROUTE .COMPLEX Qty: 90 0RF Dose Instruction: TAKE 1 TABLET BY MOUTH ONCE DAILY AT 0900 Rx Instructions: TAKE 1 TABLET BY MOUTH ONCE DAILY AT 0900 rosuvastatin 5 mg tablet See Rx Instructions .ROUTE .COMPLEX Qty: 90 0RF Dose Instruction: Take 1 tablet by mouth once daily Rx Instructions: Take 1 tablet by mouth once daily montelukast 10 mg tablet See Rx Instructions .ROUTE .COMPLEX Qty: 90 0RF Dose Instruction: TAKE 1 TABLET BY MOUTH ONCE DAILY AT 9 AM Rx Instructions: TAKE 1 TABLET BY MOUTH ONCE DAILY AT 9 AM albuterol sulfate [Ventolin HFA] 90 mcg/actuation HFA aerosol inhaler See Rx Instructions .ROUTE .COMPLEX Qty: 18 0RF Dose Instruction: INHALE 1 PUFF BY MOUTH EVERY 4 HOURS NEEDED FOR SHORTNESS OF BREATH FOR WHEEZING Rx Instructions: INHALE 1 PUFF BY MOUTH EVERY 4 HOURS NEEDED FOR SHORTNESS OF BREATH FOR WHEEZING meclizine 25 mg tablet 25 mg PO BID PRN (Reason: dizziness) Qty: 20 0RF Discharge Orders: Discharge ED (Routine); Ordered 11/13/23 Ordered By: Emmanuel Ceja Referrals: Antonio Echeverria FNP [Primary Care Provider] - Discharge Diet: Usual diet Discharge Activity: Increase activity as tolerated Patient Instructions: Opioid Safety, Pain Management Activity Restrictions/Additional Instructions: ER discharge Follow-up with your primary care doctor for further evaluation of your allergies including possible referral to telephone supervisor if felt appropriate. Coding Level of Care Code ED Wood Crew Supervisor for Jose Shin
== END 2023-11-13 10:42 | disposition home or self-care (01) ==
PROVIDERS: Emergency Provider Family Medicine; PCP Nurse Practitioner Family
DX: L50.9 Urticaria, unspecified (principal); J44.9 Chronic obstructive pulmonary disease, unspecified; E78.2 Mixed hyperlipidemia; I10 Essential (primary) hypertension
CPT/HCPCS: 99283

== ENCOUNTER → 2023-12-14 13:30 | Outpatient (BNVA) | payer MEDICAID, SELFPAY | PROVIDERS: PCP Nurse Practitioner Family; Visit Provider Nurse Practitioner Family | DX: E78.2 Mixed hyperlipidemia (principal); E87.6 Hypokalemia; J22 Unspecified acute lower respiratory infection; Z91.014 Allergy to mammalian meats; L50.9 Urticaria, unspecified | CPT/HCPCS: 80053; 80061; 85025 ==

== ENCOUNTER → 2024-03-22 09:51 | Outpatient (BNVA) | payer MEDICAID, SELFPAY | PROVIDERS: PCP Nurse Practitioner Family; Visit Provider Nurse Practitioner Family | DX: Z91.014 Allergy to mammalian meats (principal); L50.9 Urticaria, unspecified | CPT/HCPCS: 82785; 86003 ==

== ENCOUNTER → 2024-07-02 11:11 | Outpatient (BNVA) | payer MEDICAID, SELFPAY | PROVIDERS: PCP Nurse Practitioner Family; Visit Provider Nurse Practitioner Women's Health | DX: N84.1 Polyp of cervix uteri (principal); R87.619 Unspecified abnormal cytological findings in specimens from cervix uteri | CPT/HCPCS: 76830 ==

== ENCOUNTER → 2024-07-26 11:13 | Outpatient (BNVA) | payer MEDICAID, SELFPAY | PROVIDERS: PCP Nurse Practitioner Family; Visit Provider Nurse Practitioner Women's Health | DX: Z78.0 Asymptomatic menopausal state (principal) | CPT/HCPCS: 82670; 83001; 84443 ==

== ENCOUNTER → 2024-08-02 13:56 | Outpatient (BNVA) | payer MEDICAID, SELFPAY | PROVIDERS: PCP Nurse Practitioner Family; Visit Provider Nurse Practitioner Family | DX: M19.011 Primary osteoarthritis, right shoulder (principal); M19.90 Unspecified osteoarthritis, unspecified site | CPT/HCPCS: 73030; 80053; 81003; 82306; 84443; 85025 ==

== ENCOUNTER → 2024-10-16 13:45 | Outpatient (BNVA) | payer MEDICAID, SELFPAY | PROVIDERS: PCP Nurse Practitioner Family; Visit Provider Obstetrics & Gynecology | DX: Z01.419 Encounter for gynecological examination (general) (routine) without abnormal findings (principal) | CPT/HCPCS: 87624 ==

== ENCOUNTER → 2024-10-24 10:38 | Outpatient (BNVA) | payer MEDICAID, SELFPAY | PROVIDERS: PCP Nurse Practitioner Family; Visit Provider Obstetrics & Gynecology | DX: R30.0 Dysuria (principal) | CPT/HCPCS: 81000; 87086 ==

== ENCOUNTER → 2025-02-22 11:22 | Outpatient (BNVA) | payer MEDICAID, SELFPAY | PROVIDERS: PCP Nurse Practitioner Family; Visit Provider Nurse Practitioner Family | DX: I10 Essential (primary) hypertension (principal); E55.9 Vitamin D deficiency, unspecified; E78.2 Mixed hyperlipidemia; Z79.899 Other long term (current) drug therapy | CPT/HCPCS: 80053; 80061; 81003; 82306; 83036; 84439; 84443; 84481; 85025 ==